=== PATIENT | female | born 1970 | race African-American/Black ===

== ENCOUNTER 2025-02-02 12:10 | Outpatient (AMB) | payer OTHER, SELFPAY ==
--- NOTE | 2025-02-02 12:28 | MHC.AMNUTRGE ---
VS Expanded 02/02/25 12:33 02/02/25 12:45 Height 4 ft 11 in 4 ft 11 in Weight 255 lb 8.252 oz 255 lb BMI 51.6 51.5 Intake Visit Reasons: Nutrition referral Medication List - Last Reconciled 02/03/[address], LDN ferrous sulfate 325 mg PO DAILY insulin glargine (Lantus Solostar U-100 Insulin) 30 units subcut QAM insulin lispro (Admelog SoloStar U-100 Insulin lispro) 1 sliding scale dose subcut USEASDIRECTD metformin ER 500 mg PO DAILY Nutrition Presentation Details: Pt presents for MNT for T2DM Pt reports monitoring blood sugar before meals and bg ranging from 80-140 Pt reports working on modifying total carb per meals but does not know what to eat. Pt is concerned of elevated blood sugar. Brunch : sausage/eggs 5: salmon /salad 8pm rice chicken/shrimp snacks: popcorn Beverage: water, light juices, tea no sugar added SWG-Fnrobhp-Aj.Jeor Equation Height: 4 ft 11 in Weight: 255 lb Resting Metabolic Rate: 1670.37 Calculated Activity Level: Sedentary Calories Needed to Maintain Weight: 2004.44 Diagnosis Nutrition problem #1: food nutri know defi As related to (etiology) #1: diagnosis As evidenced by (sign/symptom) #1: knowledge deficit of diet Assessment & Plan Assessment & Plan (1) T2DM (type 2 diabetes mellitus): Code(s): E11.9 - Type 2 diabetes mellitus without complications Category: Medical Plan: current wt: 116 kg ( 02/19 ) est kcal needs as per MSJ: 2000 est protein needs as per 1 g/kg BW: 120 est fluid needs as per 30 ml/kg BW: 3500 Recommended fiber > 12 g /day and gradually increase up to 25-28 g /day or as tolerated Nutrition topics discussed : Reviewed (R), Pt verbalized understanding (V) , not applicable (N/A) R, : Healthy Plate Method Concept: R, : Carbohydrates: food sources of carbohydrates, relationship of carbohydrates to blood glucose, fatty liver GI health. Recommended total amount of carbohydrates per meals and snack. Differences between simple carbohydrates and complex carbohydrates R, V, N/A: Lean protein foods including vegan , vegetarian sources of protein. Benefits of protein (including but not limited to healing, nutritional value , benefits in weight loss, glucose control R, V, N/A: Fats : Source of fats, benefits of fats. Difference between saturated and unsaturated fats. Saturated fats and its contribution to inflammation R, V, N/A: Fiber: food sources and role of fiber in the diet (including but not limited to its role as a prebiotic, benefits in constipation, role in IBS , role in glucose control and cholesterol level) R, V, N/A: Hydration: role of hydration and prevention of dehydration or over hydration. Foods and water content. R, V, N/A: Vitamins and Minerals in foods and supplements R, : Interpreting food labels, including serving size, macronutrients, vitamins, minerals, allergens, ingredient list , % daily value Patient Instructions: Have a meal replacement once a day Follow healthy plate metho at dinner reducing total carb to less than 60 g = see meal ideas Coding Level of Care Code Nutr Indiv Intake (10120) Diagnoses T2DM (type 2 diabetes mellitus) E11.9 Time Spent (min) 30
[2025-02-02 12:33] VITALS: BMI 51.6
[2025-02-03 21:02] VITALS: BMI 51.5
== END 2025-02-02 13:19 | disposition home or self-care (01) ==
LOC: HO.ENCR 12:11
PROVIDERS: PCP Internal Medicine; Visit Provider Dietitian, Registered
DX: E11.9 Type 2 diabetes mellitus without complications (principal)

== ENCOUNTER → 2025-02-02 12:10 | Outpatient (BNVA) | payer OTHER, SELFPAY | PROVIDERS: PCP Internal Medicine; Visit Provider Dietitian, Registered | DX: E11.9 Type 2 diabetes mellitus without complications (principal) | CPT/HCPCS: 97802 ==

== ENCOUNTER 2025-04-12 12:48 | Outpatient (AMB) | payer OTHER, SELFPAY ==
--- OUTSIDE RECORDS SUMMARY | 2025-04-08 14:30 | XMS_ITS | Encounter Summary ---
Author Organization [facility] Address [address] [place] [address] Care Team Providers Care Janitor Caretaker Name Role Phone Gemini Law MD Primary Care Provider [phone] Encounter Details Date Type Department Care Team (Latest Contact Info) Description 04/08/2025 2:30 PM EST - 04/08/2025 11:59 PM [facility] Encounter [facility] - [facility] [address] [place] [address] Right knee pain, unspecified chronicity Discharge Disposition: Home or Self Care Social History Tobacco Use Types Packs/Day Years Used Date Smoking Tobacco: Never Smokeless Tobacco: Never Alcohol Use Standard Drinks/Week Comments No 0 (1 standard drink = 0.6 oz pur e alcohol) Housing Instability Answer Date Recorde d Are you worried that in the next 2 months you may not have stable housing? No 01/07/2025 Food Access & Nutrition Answer Date Rec orded Do you have access to a vari ety of food including fruits and vegetables? No 01/07/2025 Access to Healthcare Answer Date Record ed Within the last 3 months, ho w many times did you visit the emergency department for your medical care? 0 01/07/2025 Health Literacy Answer Date Recorded How often do you need to hav e someone help you when you read instructions, pamphlets, or other written material from your doctor or pharmacy? Often 01/07/2025 Caregiver: How often do you need to have someone help you when you read instructions, pamphlets, or other written material from your doctor or pharmacy? Not on file 01/07/2025 Financial Risk Answer Date Recorded How hard is it for you to pa y for the very basics like food, housing, medical care, and air conditioning / heating? Very hard 01/07/2025 Transportation Answer Date Recorded Has the lack of transportati on kept you from meetings, work, or from getting things needed for daily living? Yes Has the lack of transportati on kept you from medical appointments or from getting medications? Yes 01/07/2025 Social Isolation Answer Date Recorded How often do you feel lonely or isolated from th ose around you? Never 01/07/2025 Food Risk Answer Date Recorded Within the past 12 months we worried whether our food would run out before we got money to buy more. Often true 01/07/2025 Within the past 12 months th e food we bought just didn't last and we didn't have money to get more. Often true 01/07/2025 Dependent Care Answer Date Recorded Do you need help finding or paying for care for your loved ones. For example, children's choir director or elderly care for an older adult? No 01/07/2025 Education Answer Date Recorded Do you think completing more education or training, like finishing a GED, going to college, or learning a trade, would be helpful for you? Yes 01/07/2025 Employment and Income Answer Date Recor ded During the last four weeks, have you been actively looking for work? No 01/07/2025 Living Situation Answer Date Recorded What is your living situation? Unrecognized valu e 01/07/2025 Comments No Sex and Gender Information Value Date Recorded Sex Assigned at Not on file Legal Sex Female 3:42 AM EST Gender Identity Not on file Sexual Orientation Not on file documented as of this encounter Medications at Time of Discharge albuterol HFA (PROAIR HFA ; PROVENTIL HFA ; VENTOLIN HFA) 90 mcg/actuation inhaler Inhale 2 puffs by mouth if needed. 02/20/2023 apixaban (Eliquis) 5 mg tablet Take 1 tablet (5 mg total) by mouth 2 (two) times a day. 180 each 01/11/2025 bisacodyL (DULCOLAX) 5 mg EC tablet Take 2 tablets by mouth right before beginning bowel prep. See instructions provided by the office 2 tablet 2025 blood-glucose sensor (FreeStyle Mary 3 Plus Sensor)Indication s:Type 2 diabetes mellitus with hyperglycemia, with long-term current use of insulin (CMS/HCC V24, CMS/HCC V28) Apply 1 sensor and change every 15 days. Use one sensor every 15 days E11.9 6 each 1 02/16/2025 diclofenac (VOLTAREN) 1 % topical gel Apply 1 g topically 3 (three) times a day. 120 g 2 04/08/2025 ferrous sulfate 325 mg (65 mg iron) EC tabletIndications :Iron deficiency anemia, unspecified iron deficiency anemia type Take 1 tablet (325 mg total) by mouth 1 (one) time each day with breakfast. 90 tablet 1 04/06/2025 gabapentin (NEURONTIN) 300 mg capsule Take 1 capsule in the morning, 1 capsule in the afternoon and 2 capsules at night 120 each 2 02/15/2025 glucose blood test strip Use as instructed 100 each 12 01/27/2025 insulin glargine (Lantus Solostar U-100 Insulin) 100 unit/mL (3 mL) injection pen Inject 30 Units under the skin 1 (one) time each day in the morning. 15 mL 1 02/16/2025 insulin lispro (HumaLOG KwikPen) 100 unit/mL injection pen 10-15 units three times a day before meals per sliding scale. Call if <70. 100-149 14 units; 150-199 16 units; 200-249 18 units; 250-299 20 units; 300-349 22 units; 350-399 24 units call if >400 15 mL 1 02/15/2025 iron,carbonyl-vit cruz C (Vitron-C) 65 mg iron- 125 mg tablet,delayed release (DR/EC) Take 1 tablet by mouth every other day. 45 tablet 03/03/2025 6 LORazepam (ATIVAN) 0.5 mg tablet Take 1 tablet (0.5 mg total) by mouth 2 (two) times a day if needed for anxiety. Max Daily Amount: 1 mg 01/05/2025 losartan (Cozaar) 25 mg tablet Take 1 tablet (25 mg total) by mouth 1 (one) time each day. 30 each 11 02/04/2025 6 metFORMIN XR (GLUCOPHAGE-XR) 500 mg 24 hr tablet Take 1 tablet twice daily with food 180 each 2 03/10/2025 metoprolol tartrate (LOPRESSOR) 25 mg tablet Take 0.5 tablets (12.5 mg total) by mouth 2 (two) times a day. 90 tablet 1 01/27/2025 polyethylene glycol (Golytely) 236-22.74-6.74 -5.86 gram solution Take 4L by mouth once for one dose. May substitue any PEG. Starting at 2PM the day before your procedure drink 1 8oz glasses at your own pace until you complete half of the gallon. Finish 2nd half of the gallon at 8PM. 4000 mL 2025 rosuvastatin (CRESTOR) 10 mg tablet Take 1 tablet (10 mg total) by mouth 1 (one) time each day. 90 tablet 1 03/03/2025 documented as of this encounter Discharge Disposition Disposition Code Departure Means Destination Home or Self Care documented in this encounter Plan of Treatment Upcoming Encounters Date Type Department Care Team (Late st Contact Info) Description 04/15/2025 12:30 PM EST Ancillary Procedure [facility] [address] [facility] [address] [place] [address] 04/29/2025 11:30 AM EST Office Visit [facility] Hematology Oncology [address] [place] [phone] Elizabeth Chan, [address] [place] [address] 05/10/2025 9:00 AM EST Appointment [facility] Endoscopy [address] [place] [address] Obi Angelo MD [address] [facility] [address] [place] [address] 05/12/2025 8:30 AM EST Office Visit Endocrinology - [facility] [address] [place] [address] Paulina Jones PA [address] [place] [address] 05/13/2025 4:00 PM EST Office Visit Orthopedics - [facility] [address] [place] [address] Alok Mccauley PA [address] [place] [address] 06/09/2025 9:00 AM EST Office Visit Internal Medicine - [facility] [address] [place] [address] Angie Donahue NP [address] [place] [address] 07/08/2025 3:00 PM EDT Ancillary Procedure Pulmonology [facility] [address] [phone] 07/08/2025 3:45 PM EDT Office Visit Pulmonology [address] [phone] Renu Barclay MD [address] [place] [phone] documented as of this encounter Procedures Procedure Name Priority Date/Time Associated Diagnosis Comments XR KNEE 4+ VIEWS RIGHT Routine 04/08/2025 2:59 PM EST Right knee pain, unspecified chronicity documented in this encounter Results * XR Knee 4+ Views Right (04/08/2025 2:59 PM EST) Anatomical Region Laterality Modality Lower Extremities, Knee Right [facility] 04/10/2025 9:34 AM EST Impressions 04/10/2025 9:38 AM EST Progressive degenerative changes. -------- FINAL REPORT -------- Dictated By: Odilia Valentin Dictated Date: 04/10/2025 09:34 ET Assigned Physician: Odilia Valentin Reviewed and Electronically Signed By: Odilia Valentin Signed Date: 04/10/2025 09:38 ET Workstation ID: [id number] Transcribed By: Self Edit Transcribed Date: 04/10/2025 09:34 ET Narrative 04/10/2025 9:38 AM EST EXAM: Right knee x-ray HISTORY: Right knee pain. COMPARISON: 10/22/2019 VIEWS: 4 views performed, AP and tunnel views performed weightbearing. FINDINGS: Progressive joint space narrowing at the patellofemoral joint. Mild joint space narrowing in the medial compartment. Progressive tricompartment spurring. No acute fracture or malalignment detected. No destructive bone lesion. No joint effusion. Procedure Note Odilia Valentin MD - 04/10/2025 EXAM: Right knee x-ray HISTORY: Right knee pain. COMPARISON: 10/22/2019 VIEWS: 4 views performed, AP and tunnel views performed weightbearing. FINDINGS: Progressive joint space narrowing at the patellofemoral joint. Mild jointspace narrowing in the medial compartment. Progressive tricompartmentspurring. No acute fracture or malalignment detected. No destructive bonelesion. No joint effusion. IMPRESSION: Progressive degenerative changes. -------- FINAL REPORT -------- Dictated By: Odilia Valentin Dictated Date: 04/10/2025 09:34 ET Assigned Physician: Odilia Valentin Reviewed and Electronically Signed By: Odilia Valentin Signed Date: 04/10/2025 09:38 ET Workstation ID: [id number] Transcribed By: Self Edit Transcribed Date: 04/10/2025 09:34 ET [facility] IMG XR PROCEDURES Final Result documented in this encounter Visit Diagnoses Diagnosis Right knee pain, unspecified chronicity documented in this encounter Additional Health Concerns Assessment Noted Time PHQ-9 Depression Total Score: 13 03/03/ 025 2:01 PM EST documented as of this encounter Care Teams Janitor Caretaker Relationship Specialty Start Date End Date Gemini Law MD [address] [place] [phone] PCP - General Internal Medicine 01/21/25 documented as of this encounter
--- OUTSIDE RECORDS SUMMARY | 2025-04-08 15:30 | XMS_ITS | Encounter Summary ---
Author Organization [facility] Address [address] [place] [address] Care Team Providers Care Shoeshiner Name Role Phone Gemini Law MD Primary Care Provider [phone] Reason for Visit * Reason Comments Pain Consult * Consultation (Routine) - Authorized Specialty Diagnoses / Procedures Referred By Contact Referred To Contact Orthopaedics / Orthopaedic Surgery Diagnoses Chronic pain of right knee Elizabeth Romano NP [address] [place] [address] Phone: tel: fax: Alok Mccauley PA [address] [place] [phone] Phone: tel: fax: Referral ID Status Reason Start Date Expiration Date Visits Requested Visits Authorized [id number] Authorized Specialty Services Required 02/04/2026 1 1 Encounter Details Date Type Department Care Team (Late st Contact Info) Description 04/08/2025 3:30 PM EST Consult Orthopedics - [place] [address] [place] [phone] Alok Mccauley PA [address] [place] [phone] Primary osteoarthritis of right knee (Primary Dx) Social History Tobacco Use Types Packs/Day Years Used Date Smoking Tobacco: Never Smokeless Tobacco: Never Tobacco Cessation:Counseling Given: Not Answered Alcohol Use Standard Drinks/Week Comments No 0 [...] for your loved ones. For example, children's institution attendant or elderly care for an older adult? [...] on file documented as of this encounter Last Filed Vital Signs Vital Sign Reading Time Taken Comments Blood Pressure - - Pulse - - Temperature - - Respiratory Rate 16 04/08/2025 3:09 PM EST Oxygen Saturation - - Inhaled Oxygen Concentration - - Weight 115 kg (253 lb) 04/08/2025 3:09 PM EST Height 149.9 cm (4' 11 ) 04/08/2025 3:09 PM EST Body Mass Index 51.1 04/08/2025 3:09 PM EST documented in this encounter Ordered Prescriptions Prescription Sig Dispense Quantity Refills Last Filled Start Date End Date diclofenac (VOLTAREN) 1 % topical gel Apply 1 g topically 3 (three) times a day. 120 g 2 04/08/2025 documented in this encounter Progress Notes * PAN Espinoza - 04/08/2025 3:30 PM EST CHIEF COMPLAINT: Pain and Consult of the Right Knee had concerns including Pain and Consult of the Right Knee. IDENTIFIER: Cami Vitale is a 55 y.o. old female. HPI: Cami Vitale is here for evaluation of right knee pain. Patient is having worsening right knee pain over the last 2 years. This has become more severe with climbing and going down stairs as well as making her feel like the knee is unstable. ROS: GENERAL: No malaise, significant weight loss or fever HEENT: No changes in hearing or vision, nose bleeds or other nasal problems NECK: No lumps, goiter, pain or significant neck swelling RESPIRATORY: No cough, wheezing or shortness of breath CARDIOVASCULAR: No chest pain, leg swelling or palpitations GI: No abdominal discomfort, blood in stools or black stools : No dysuria, frequency or incontinence MUSCULOSKELETAL: See HPI. SKIN: No lesions, rash or itching NEURO: No persistent headache, syncope, seizures, weakness or numbness Remainder of systems noncontributory. PHYSICAL EXAM: Vitals: 04/08/25 1509 Resp: 16 Weight: 115 kg (253 lb) Height: 1.499 m (59 ) Examination of the right knee demonstrates some tenderness of the medial joint line. Otherwise the knee is stable to ligamentous stress and no effusion or swelling Full range of motion LABS/IMAGING: Xrays reviewed: X-rays performed of the right knee demonstrate mild arthritic changes small marginal osteophytes. Reading pending IMPRESSION: 1. Primary osteoarthritis of right knee Cami was seen today for pain and consult. Diagnoses and all orders for this visit: 1. Primary osteoarthritis of right knee Other orders - Ambulatory referral to Orthopedic - diclofenac sodium; Apply 1 g topically 3 (three) times a day. PLAN: 1. Primary osteoarthritis of right knee (Primary) Patient with mild arthritis of the right knee that is symptomatic however. We talked about option she cannot take oral NSAIDs. We can have her trial diclofenac gel we did discuss cortisone injectionsbut she would like to wait on those and see how she does with a topical No orders of the defined types were placed in this encounter. The details of the visit were reviewed with the patient. Pertinent history, and objective findings were reviewed, along with the diagnoses: Cami Prophet acknowledges understanding of the above plan and agrees to follow recommendations and/or take medications as prescribed. Follow up in about 4 weeks (around 05/06/2025). PAST MEDICAL HISTORY: Patient Active Problem List Diagnosis Date Noted Primary hypertension 02/04/2025 History of pulmonary embolism 02/04/2025 Iron deficiency anemia 01/25/2025 Excessive bleeding in premenopausal period 01/25/2025 PFO (patent foramen ovale) 01/21/2025 Type 2 diabetes mellitus with microalbuminuria ([facility] V24, [facility] V28) 01/02/2025 Type 2 diabetes mellitus with hyperglycemia, with long-term current use of insulin ([facility] V24, [facility] V28) 12/24/2024 Enlargement of lymph node 01/10/2021 Glaucoma suspect, bilateral 06/04/2017 Vitamin D deficiency 12/27/2009 Morbid obesity ([facility] V24, [facility] V28) 11/07/2009 Surgical History[1] SOCIAL HISTORY: Social History Tobacco Use Smoking status: Never Smokeless tobacco: Never Substance Use Topics Alcohol use: No FAMILY HISTORY: Family History[2] MEDICATIONS DISCONTINUED/REORDERED: There are no discontinued medications. ACTIVE MEDICATIONS: Medications Taking[3] ALLERGIES: Allergies[4] PAN Espinoza [1] Past Surgical History: Procedure Laterality Date OTHER SURGICAL HISTORY PROCEDURE: DENIES PREVIOUS SURGERY [2] Family History Problem Relation Name Age of Onset No Known Problems Mother No Known Problems Father No Known Problems Sister No Known Problems Sister No Known Problems Brother No Known Problems Maternal Grandmother Heart attack Maternal Grandfather older than 50 No Known Problems Paternal Grandmother No Known Problems Paternal Grandfather No Known Problems Aunt No Known Problems Uncle Lupus Nephew Anu Mclaughlin Breast cancer Neg Hx Blindness Neg Hx cataract, glaucoma, macular degeneration, strabismus Thyroid disease Neg Hx [3] Outpatient Medications Marked as Taking for the 04/08/25 encounter (Consult) with PAN Espinoza Medication Sig Dispense Refill albuterol HFA (PROAIR HFA ; PROVENTIL HFA ; VENTOLIN HFA) 90 mcg/actuation inhaler Inhale 2 puffs by mouth if needed. apixaban (Eliquis) 5 mg tablet Take 1 tablet (5 mg total) by mouth 2 (two) times a day. 180 each 0 bisacodyL (DULCOLAX) 5 mg EC tablet Take 2 tablets by mouth right before beginning bowel prep. See instructions provided by the office 2 tablet 0 blood-glucose sensor (FreeStyle Mary 3 Plus Sensor) Apply 1 sensor and change every 15 days. Use one sensor every 15 days E11.9 6 each 1 ferrous sulfate 325 mg (65 mg iron) EC tablet Take 1 tablet (325 mg total) by mouth 1 (one) time each day with breakfast. 90 tablet 1 gabapentin (NEURONTIN) 300 mg capsule Take 1 capsule in the morning, 1 capsule in the afternoon and2 capsules at night 120 each 2 glucose blood test strip Use as instructed 100 each 12 insulin glargine (Lantus Solostar U-100 Insulin) 100 unit/mL (3 mL) injection pen Inject 30 Units under the skin 1 (one) time each day in the morning. 15 mL 1 insulin lispro (HumaLOG KwikPen) 100 unit/mL injection pen 10-15 units three times a day before meals per sliding scale. Call if <70. 100-149 14 units; 150- 199 16 units; 200-249 18 units; 250-299 20 units; 300-349 22 units; 350-399 24 units call if >400 15 mL 1 iron,carbonyl-vitamin C (Vitron-C) 65 mg iron- 125 mg tablet,delayed release (DR/EC) Take 1 tablet by mouth every other day. 45 tablet 0 LORazepam (ATIVAN) 0.5 mg tablet Take 1 tablet (0.5 mg total) by mouth 2 (two) times a day if needed for anxiety. Max Daily Amount: 1 mg losartan (Cozaar) 25 mg tablet Take 1 tablet (25 mg total) by mouth 1 (one) time each day. 30 each 11 metFORMIN XR (GLUCOPHAGE-XR) 500 mg 24 hr tablet Take 1 tablet twice daily with food 180 each 2 metoprolol tartrate (LOPRESSOR) 25 mg tablet Take 0.5 tablets (12.5 mg total) by mouth 2 (two) times a day. 90 tablet 1 polyethylene glycol (Golytely) 236-22.74-6.74 -5.86 gram solution Take 4L by mouth once for one dose. May substitue any PEG. Starting at 2PM the day before your procedure drink 1 8oz glasses at your own pace until you complete half of the gallon. Finish 2nd half of the gallon at 8PM. 4000 mL 0 rosuvastatin (CRESTOR) 10 mg tablet Take 1 tablet (10 mg total) by mouth 1 (one) time each day. 90 tablet 1 Current Facility-Administered Medications for the 04/08/25 encounter (Consult) with PAN Espinoza Medication Dose Route Frequency Provider Last Rate Last Admin alcohol swabs pads, medicated Topical Once Gemini Law MD [4] No Known Allergies documented in this encounter Plan of Treatment Upcoming Encounters Date Type Department Care Team (Late st Contact Info) Description 04/15/2025 12:30 PM EST Ancillary Procedure [facility] - [address] [place] [address] 04/29/2025 11:30 AM EST Office Visit [facility] Hematology Oncology [address] [place] [phone] Elizabeth Chan DO [address] [place] [address] 05/10/2025 9:00 AM EST Appointment [facility] Endoscopy [address] [place] [phone] Obi Angelo MD 299 [facility] [address] [place] [address] 05/12/2025 8:30 AM EST Office Visit Endocrinology - [address] [phone] Paulina Jones PA [address] [place] [address] 05/13/2025 4:00 PM EST Office Visit Orthopedics - [address] [phone] Aolk Mccauley PA [address] [place] [phone] 06/09/2025 9:00 AM EST Office Visit Internal Medicine - [facility] [address] [place] [address] Angie Donahue, FRED [address] [place] [address] 07/08/2025 3:00 PM EDT Ancillary Procedure Pulmonology [facility] 175 [facility] [address] [place] [phone] 07/08/2025 3:45 PM EDT Office Visit Pulmonology - [place] 175 [facility] [address] [place] [phone] Renu Barclay MD [address] [place] [phone] documented as of this encounter Visit Diagnoses Diagnosis Primary osteoarthritis of right knee- Primary documented in this encounter Orders Outpatient Referral Count Last Ordered Date Fir st Ordered Date AMB REFERRAL TO ORTHOPEDIC 1 04/08/2025 documented in this encounter Additional Health Concerns Assessment Noted Time PHQ-9 Depression Total Score: 13 025 2:01 PM EST documented as of this encounter Care Teams Shoeshiner Relationship Specialty Start Date End Date Gemini Law MD [address] [facility] [place] [address] PCP - General Internal Medicine 01/21/25 documented as of this encounter
--- NOTE | 2025-04-12 13:04 | MHC.AMNUTRGE ---
VS Expanded 04/12/25 13:10 04/13/25 13:56 Height 4 ft 11 in 4 ft 11 in Weight 251 lb 8 oz 251 lb BMI 50.8 50.7 Intake Visit Reasons: T2dm Nutrition Presentation Details: Pt presents for MNT f/u for T2DM Pt reports lacking meal planning and cooking skills but working on trying new foods. Pt reports working on reducing starches and high sugar foods. B: chex dry and a fruit or and yogurt L: ravioli and sausages , water or crystal light Dinner: rest (buffet) , choosing low sugar beverages Pt reports working on reducing sugars and starches. Pt did not bring glucometer to this appt. Pt reports having low blood glucose levels, below 70s after the meals, this has happened 2-3 times a week at no particular meal or time. Pt reports treating low BG by having juice or 3 glucose tablets, resulting in BG >90, 15 minutes after. Pt was advised to call PCP and notify dosages of insulin /meal and time when low blood sugar is happening for further assessment. DGE-Qklpbfw-Xb.Jeor Equation Height: 4 ft 11 in Weight: 251 lb Resting Metabolic Rate: 1647.32 Calculated Activity Level: Sedentary Calories Needed to Maintain Weight: 1976.78 Assessment & Plan Assessment & Plan (1) T2DM (type 2 diabetes mellitus): Code(s): E11.9 - Type 2 diabetes mellitus without complications Category: Medical Plan: current wt: 116 kg ( 02/19 ), 114 kg (04/21) est kcal needs as per MSJ: 2000 est protein needs as per 1 g/kg BW: 120 est fluid needs as per 30 ml/kg BW: 3400 Recommended fiber > 12 g /day and gradually increase up to 25-28 g /day or as tolerated Nutrition topics discussed : Reviewed (R), Pt verbalized understanding (V) , not applicable (N/A) R, : Healthy Plate Method Concept: R, : Carbohydrates: food sources of carbohydrates, relationship of carbohydrates to blood glucose, fatty liver GI health. Recommended total amount of carbohydrates per meals and snack. Differences between simple carbohydrates and complex carbohydrates R, : Lean protein foods including vegan , vegetarian sources of protein. Benefits of protein (including but not limited to healing, nutritional value , benefits in weight loss, glucose control R, V, N/A: Fats : Source of fats, benefits of fats. Difference between saturated and unsaturated fats. Saturated fats and its contribution to inflammation R, V, N/A: Fiber: food sources and role of fiber in the diet (including but not limited to its role as a prebiotic, benefits in constipation, role in IBS , role in glucose control and cholesterol level) R, : Hydration: role of hydration and prevention of dehydration or over hydration. Foods and water content. R, V, N/A: Vitamins and Minerals in foods and supplements R, : Interpreting food labels, including serving size, macronutrients, vitamins, minerals, allergens, ingredient list , % daily value Patient Instructions: read food labels choose less than 20 g of carbohydrates and at least 12 g of protein), limit snacks to no more than 3 a day Continue working on reducing on amounts of starches consumed (thinner crust for her pizza,caution when eating out, caution with sauces that have sugar added, a soups that have more starch added, breaded protein sources and in general amount of starches consumed. Work on following healthy plate method Keep a food record and bring to next follow-up Discuss low blood sugars including time, meal, and amount of insulin with your doctor for further assessment Coding Level of Care Code Nutr Indiv Subseq (88232) Diagnoses T2DM (type 2 diabetes mellitus) E11.9 Time Spent (min) 30
[2025-04-12 13:10] VITALS: BMI 50.8
--- OUTSIDE RECORDS SUMMARY | 2025-04-12 16:39 | XMS_ITS ---
Author Name [facility] Organization Unknown Care Team Organization Name Specialty Phone Email Start Date End Da te [facility] 03/05/2022 12/15/2023
--- OUTSIDE RECORDS SUMMARY | 2025-04-12 16:39 | XMS_ITS | Encounter Summary ---
Author Organization [facility] Address [address] [place] [address] Care Team Providers Care Psychiatrist Name Role Phone Gemini Law MD Primary Care Provider [phone] Reason for Visit * Reason Onset Date Comments Request For Order(s) 03/10/2025 Marcos grant [id number] Encounter Details Date Type Department Care Team ([facility] [address] Contact Info) Description 03/10/2025 Telephone Internal Medicine - [place] [address] [place], [place] [phone] Gemini Law MD [address] [place] [address] Social History Tobacco Use Types Packs/Day Years [...] care for your loved ones. For example, child care specialist or elderly care for an older adult? [...] on file documented as of this encounter Progress Notes * Keena Stewart - 03/10/2025 2:37 PM EST Placed order in Gemini Law MD Please sign and fax back to [phone] documented in this encounter Plan of Treatment Upcoming Encounters Date Type Department Care Team (Late st Contact Info) Description 04/15/2025 12:30 PM EST Ancillary Procedure [facility] [address] [place] [phone] 04/29/2025 11:30 AM EST Office Visit [facility] Hematology Oncology [address] [place] [phone] Elizabeth Chan, DO [address] [place] [address] 05/10/2025 9:00 AM EST Appointment [facility] Endoscopy [address] [place] [phone] Obi Angelo MD 299 [facility] [address] [place] [address] 05/12/2025 8:30 AM EST Office Visit Endocrinology - [place] [address] [place] [address] Paulina Jones PA [address] [place] [address] 05/13/2025 4:00 PM EST Office Visit Orthopedics - [address] [phone] Alok Mccauley, PAN [address] [place] [phone] 06/09/2025 9:00 AM EST Office Visit Internal Medicine - [facility] [address] [place] [address] Angie Donahue, FRED [address] [place] [address] 07/08/2025 3:00 PM EDT Ancillary Procedure Pulmonology - [place] 175 [facility] 200 [place] [phone] 07/08/2025 3:45 PM EDT Office Visit Pulmonology - [place] 175 [facility] [address] [place] [phone] Renu Barclay MD [address] [place] [phone] documented as of this encounter Visit Diagnoses Not on filedocumented in this encounter Additional Health Concerns Assessment Noted Time PHQ-9 Depression Total Score: 13 025 2:01 PM EST documented as of this encounter Care Teams Psychiatrist Relationship Specialty Start Date End Date Gemini Law MD [address] [place] [phone] PCP - General Internal Medicine 01/21/25 documented as of this encounter
--- OUTSIDE RECORDS SUMMARY | 2025-04-12 16:39 | XMS_ITS | Encounter Summary ---
Author Organization [facility] Address [address] [place] [address] Care Team Providers Care Corset Maker Name Role Phone Gemini Law MD Primary Care Provider [phone] Encounter Details Date Type Department Care Team (Late st Contact Info) Description 02/04/2025 [facility] [address] [place] [address] Elizabeth Romano NP [address] [place] [address] Social History Tobacco Use Types Packs/Day Years [...] for your loved ones. For example, child development specialist or elderly care for an older [...] on file documented as of this encounter Plan of Treatment Upcoming Encounters Date Type Department Care Team (Late st Contact Info) Description 04/15/2025 12:30 PM EST Ancillary Procedure [facility] - [address] [place] [address] 04/29/2025 11:30 AM EST Office Visit [facility] Hematology Oncology [address] [place] [phone] Elizabeth Chan, DO [address] [place] [address] 05/10/2025 9:00 AM EST Appointment [facility] Endoscopy [address] [place] [phone] Obi Angelo MD 299 [facility] [address] [place] [address] 05/12/2025 8:30 AM EST Office Visit Endocrinology - [address] [phone] Paulina Jones PA [address] [place] [address] 05/13/2025 4:00 PM EST Office Visit Orthopedics - [address] [phone] Alok Mccauley PA [address] [place] [phone] 06/09/2025 9:00 AM EST Office Visit Internal Medicine - [facility] [address] [place] [address] Angie Donahue, FRED [address] [place] [address] 07/08/2025 3:00 PM EDT Ancillary Procedure Pulmonology [facility] 175 [facility] [address] [place] [phone] 07/08/2025 3:45 PM EDT Office Visit Pulmonology [facility] 175 [facility] [address] [place] [phone] Renu Barclay MD [address] [place] [phone] documented as of this encounter Visit Diagnoses Not on filedocumented in this encounter Additional Health Concerns Assessment Noted Time PHQ-9 Depression Total Score: 17 025 9:43 AM EDT documented as of this encounter Care Teams Corset Maker Relationship Specialty Start Date End Date Gemini Law MD 305 [facility] [place] [phone] PCP - General Internal Medicine 01/21/25 documented as of this encounter
--- OUTSIDE RECORDS SUMMARY | 2025-04-12 16:39 | XMS_ITS | Encounter Summary ---
Author Organization [facility] Address [address] [place] [address] Care Team Providers Care Product Developer Name Role Phone Gemini Law MD Primary Care Provider [phone] Encounter Details Date Type Department Care Team (Late st Contact Info) Description 02/07/2025 Results Follow-Up Walk[facility] - [facility] [address] [place] [phone] Ricardo Howell, FRED [address] [place], [place] [phone] Social History Tobacco Use Types Packs/Day Years [...] for your loved ones. For example, child protection specialist or elderly care for an older [...] as of this encounter Progress Notes * Miladys Castorena - 02/07/2025 11:29 AM EDT Pt returned call for ultra sound results, please call back at [phone] documented in this encounter Plan of Treatment Upcoming Encounters Date Type Department Care Team (Late st Contact Info) Description 04/15/2025 12:30 PM EST Ancillary Procedure [facility] - [address] [place] [address] 04/29/2025 11:30 AM EST Office Visit [facility] Hematology Oncology [address] [place] [phone] Elizabeth Chan DO [address] [place] [address] 05/10/2025 9:[address] [facility] Endoscopy [address] [place] [phone] Obi Angelo MD [address] [address] 05/12/2025 8:30 AM EST Office Visit Endocrinology - [address] [phone] Paulina Jones PA [address] [place] [address] 05/13/2025 4:00 PM EST Office Visit Orthopedics - [place] [phone] Alok Mccauley PA [address] [place] [phone] 06/09/2025 9:00 AM EST Office Visit Internal Medicine - [address] [phone] Angie Donahue NP [address] [place] [address] 07/08/2025 3:00 PM EDT Ancillary Procedure Pulmonology - [place] [address] [phone] 07/08/2025 3:45 PM EDT Office Visit Pulmonology - [place] [address] [phone] Renu Barclay MD [address] [place] [phone] documented as of this encounter Visit Diagnoses Not on filedocumented in this encounter Additional Health Concerns Assessment Noted Time PHQ-9 Depression Total Score: 17 025 9:43 AM EDT documented as of this encounter Care Teams Product Developer Relationship Specialty Start Date End Date Gemini Law MD [facility] [phone] PCP - General Internal Medicine 01/21/25 documented as of this encounter
--- OUTSIDE RECORDS SUMMARY | 2025-04-12 16:39 | XMS_ITS | Clinical Summary ---
Author Organization [place] [address] [address] [facility] Building Address [address] [facility] [place] [address] Phone Care Team Providers Care Parcel Post Order Clerk Name Role Phone Gemini Law MD Primary Care Provider [phone] Allergies No known active allergies Medications albuterol HFA (PROAIR HFA ; PROVENTIL HFA ; VENTOLIN HFA) 90 mcg/actuation inhaler Inhale 2 puffs by mouth if needed. 02/21/20 23 Active LORazepam (ATIVAN) 0.5 mg tablet Take 1 tablet (0.5 mg total) by mouth 2 (two) times a day if needed for anxiety. Max Daily Amount: 1 mg 01/06/20 25 Active apixaban (Eliquis) 5 mg tablet Take 1 tablet (5 mg total) by mouth 2 (two) times a day. 180 each 01/12/20 25 Active metoprolol tartrate (LOPRESSOR) 25 mg tablet Take 0.5 tablets (12.5 mg total) by mouth 2 (two) times a day. 90 tablet 1 01/28/20 25 Active glucose blood test strip Use as instructed 100 each 12 01/28/20 25 026 Active losartan (Cozaar) 25 mg tablet Take 1 tablet (25 mg total) by mouth 1 (one) time each day. 30 each 11 02/05/20 25 026 Active insulin lispro (HumaLOG KwikPen) 100 unit/mL injection pen 10-15 units three times a day before meals per sliding scale. Call if <70. 100-149 14 units; 150-199 16 units; 200-249 18 units; 250-299 20 units; 300-349 22 units; 350-399 24 units call if >400 15 mL 1 02/16/20 25 Active gabapentin (NEURONTIN) 300 mg capsule Take 1 capsule in the morning, 1 capsule in the afternoon and 2 capsules at night 120 each 2 02/16/20 25 Active insulin glargine (Lantus Solostar U-100 Insulin) 100 unit/mL (3 mL) injection pen Inject 30 Units under the skin 1 (one) time each day in the morning. 15 mL 1 02/17/20 25 Active blood-glucose sensor (FreeStyle Mary 3 Plus Sensor)Indicati ons:Type 2 diabetes mellitus with hyperglycemia, with long-term current use of insulin (CMS/[facility] V24, CMS/HCC V28) Apply 1 sensor and change every 15 days. Use one sensor every 15 days E11.9 6 each 1 02/17/20 25 Active bisacodyL (DULCOLAX) 5 mg EC tablet Take 2 tablets by mouth right before beginning bowel prep. See instructions provided by the office 2 tablet 02/23/20 25 Active polyethylene glycol (Golytely) 236-22.74-6.74 -5.86 gram solution Take 4L by mouth once for one dose. May substitue any PEG. Starting at 2PM the day before your procedure drink 1 8oz glasses at your own pace until you complete half of the gallon. Finish 2nd half of the gallon at 8PM. 4000 mL 02/23/20 25 Active rosuvastatin (CRESTOR) 10 mg tablet Take 1 tablet (10 mg total) by mouth 1 (one) time each day. 90 tablet 1 03/03/20 25 026 Active iron,carbonyl-v itamin C (Vitron-C) 65 mg iron- 125 mg tablet,delayed release (DR/EC) Take 1 tablet by mouth every other day. 45 tablet 03/03/20 25 026 Active metFORMIN XR (GLUCOPHAGE-XR) 500 mg 24 hr tablet Take 1 tablet twice daily with food 180 each 2 03/10/20 25 Active ferrous sulfate 325 mg (65 mg iron) EC tabletIndicatio ns:Iron deficiency anemia, unspecified iron deficiency anemia type Take 1 tablet (325 mg total) by mouth 1 (one) time each day with breakfast. 90 tablet 1 04/06/20 25 Active diclofenac (VOLTAREN) 1 % topical gel Apply 1 g topically 3 (three) times a day. 120 g 2 04/08/20 25 Active ferrous sulfate 325 mg (65 mg iron) EC tabletIndicatio ns:Iron deficiency anemia, unspecified iron deficiency anemia type Take 1 tablet (325 mg total) by mouth 1 (one) time each day with breakfast. Do not crush, chew, or split. 90 tablet 01/03/20 25 025 Discontin u([facility]) [facility], Clinic, or Other Facility Administered Medication Ordered Dose Route Frequency Start Date End Date Status alcohol swabs pads, medicatedIndications:Type 2 diabetes mellitus with hyperglycemia, without long-term current use of insulin ([facility] V24, [facility] V28) TP Once 01/27/2025 Active Active Problems Problem Noted Date Diagnosed Date Primary hypertension 02/04/2025 History of pulmonary embolism 02/04/2025 Iron deficiency anemia 01/25/2025 Excessive bleeding in premenopausal period 01/25 PFO (patent foramen ovale) 01/21/2025 Type 2 diabetes mellitus with microalbuminuria 0 01/02/2025 Type 2 diabetes mellitus wit h hyperglycemia, with long-term current use of insulin 12/24/2024 Assessment & Plan (12/24/2024 8:37 AM EDT): 1 has started on metformin 500 mg, 2 tablet twice a day. I have diabetic panel ordered. I have referred her to endocrinology. Orders: Hemoglobin A1c; Future Microalbumin, protein and creatinine with ratio, urine, random; Future Lipid panel; Future Comprehensive metabolic panel; Future Ambulatory referral to Endocrinology; Future Enlargement of lymph node 01/10/2021 Overview (12/23/2024): R axilla, ref onc for ? biopsu Glaucoma suspect, bilateral 06/04/2017 Vitamin D deficiency 12/27/2009 Morbid obesity 11/07/2009 Resolved Problems Problem Noted Date Diagnosed Date Resolved Date Diabetes mellitus type 2, uncomplicated 01/05/2015 12/24/2024 Encounters Date Type Department Care Team Description 04/08/2025 3:30 PM EST Consult Orthopedics - [place] [address] [place] [address] Alok Mccauley PA Primary osteoarthritis of right knee (Primary Dx) 04/08/2025 2:30 PM EST - 04/08/2025 11:59 PM EST Hospital Encounter [facility] [address] [place], [place] [phone] Right knee pain, unspecified chronicity Discharge Disposition: Home or Self Care 04/06/2025 Billing Patient Not Present Internal Medicine - [place] [address] [place], [place] [phone] Gemini Law MD Type 2 diabetes mellitus without complications, unspecified whether intermediate insulin use ([facility] V24, [facility] V28) (Primary Dx) 04/01/2025 4:00 PM EST Consult Pulmonology - [place] [address] [facility] [address] [place] [address] Renu Barclay MD Pulmonary embolism, other, unspecified chronicity, unspecified whether acute cor pulmonale present ([facility] V24, [facility] V28) (Primary Dx); ASHLEY (dyspnea on exertion); Apnea; Echoencephalogram abnormality; Class 3 severe obesity due to excess calories with serious comorbidity and body mass index (BMI) of 50.0 to 59.9 in adult ([facility] V24, [facility] V28) 04/01/2025 1:35 PM EST Lab Draw Station - [facility] [address] [facility] [address] [place] [address] Bilateral pulmonary embolism ([facility] V24, [facility] V28) 04/01/2025 1:00 PM EST Office Visit [facility] Hematology Oncology [address] [place] [phone] Elizabeth Chan DO Bilateral pulmonary embolism ([facility] V24, [facility] V28) (Primary Dx) 03/31/2025 Telephone Internal Medicine - [place] [address] [place], [place] [phone] Gemini Law MD 03/11/2025 Telephone Internal Medicine - [place] [address] [facility] [place], [place] [phone] Gemini Law MD 03/10/2025 8:45 AM EST Office Visit Endocrinology [address] [phone] Paulina Jones PA Type 2 diabetes mellitus with hyperglycemia, with long-term current use of insulin ([facility] V24, [facility] V28) (Primary Dx) 03/10/2025 Telephone Internal Medicine - [address] [phone] Gemini Law MD 03/09/2025 Telephone Internal Medicine - [address] [phone] Gemini Law MD 03/03/2025 2:00 PM EST Office Visit Internal Medicine - [address] [phone] Gemini Law MD Type 2 diabetes mellitus with hyperglycemia, with long-term current use of insulin ([facility] V24, [facility] V28) (Primary Dx); Proteinuria, unspecified type; History of pulmonary embolism; Morbid obesity ([facility] V24, [facility] V28); Iron deficiency anemia, unspecified iron deficiency anemia type; Primary hypertension; Hyperlipidemia associated with type 2 diabetes mellitus ([facility] V24, [facility] V28); Current use of intermediate anticoagulation; Snoring; Screening for deficiency anemia 02/24/2025 Telephone Gastroenterology - [place] [facility] 175 [facility] [address] [place] [phone] Summer Page MD 02/24/2025 Telephone Endocrinology - [address] [phone] Marina Gale PA 02/23/2025 Telephone Gastroenterology - [address] [facility] [address] [place] [phone] Nadine Wang MA 02/15/2025 Telephone [facility] [place] [phone] Gemini Law MD 02/10/2025 Telephone Internal Medicine - [address] [place] [phone] Gemini Law MD 02/09/2025 9:00 AM EDT Consult Endocrinology [address] [phone] Paulina Jones PA Type 2 diabetes mellitus with hyperglycemia, with long-term current use of insulin (CMS/HCC V24, CMS/HCC V28) (Primary Dx); Primary hypertension 02/09/2025 Telephone [facility] [address] [place], [place] [address] [place] [phone] Gemini Law MD 02/08/2025 Telephone [facility] [place] [phone] Gemini Law MD 02/08/2025 Telephone [facility] [place] [phone] Gemini Law MD 02/07/2025 9:30 AM EDT - 02/07/2025 11:59 PM EDT Hospital [facility] [address] [place], [place] [address] [place] [phone] Abdominal mass, right lower quadrant Discharge Disposition: Home or Self Care 02/07/2025 Telephone [facility] [address] [place], [place] [address] [place] [phone] Ricardo Howell NP 02/07/2025 Telephone [facility] [address] [place], [place] [address] [place] [phone] Ricardo Howell NP 02/07/2025 Results Follow-Up [facility] [address] [place], [place] [address] [place] [phone] Ricardo Howell NP 02/04/2025 11:15 AM EDT Office [facility] [phone] Elizabeth Romano NP Type 2 diabetes mellitus with hyperglycemia, with long-term current use of insulin ([facility] V24, [facility] V28) (Primary Dx); Iron deficiency anemia, unspecified iron deficiency anemia type; Vitamin D deficiency; History of pulmonary embolism; Immunization due; Chronic pain of right knee; Primary hypertension 02/04/2025 Results Follow-Up [facility] [phone] Elizabeth Romano NP 02/04/2025 Telephone Internal Medicine - [address] [phone] Ivana Sharma MA 02/04/2025 Telephone Internal Medicine - [address] [phone] Gemini Law MD 01/28/2025 1:18 PM EDT - 01/28/2025 11:59 PM EDT Hospital Encounter [facility] [address] [place] [phone] Encounter for screening mammogram for malignant neoplasm of breast Discharge Disposition: Home or Self Care 01/25/2025 8:20 AM EDT Consult Gastroenterology - [place] 175 [facility] 175 [facility] [address] [place] [phone] Obi Angelo MD Iron deficiency anemia due to chronic blood loss (Primary Dx); Excessive bleeding in premenopausal period 01/24/2025 9:50 AM EDT Office Visit [facility] - [facility] [address] [facility] [address] [place] [phone] Padmini Boss MD PFO (patent foramen ovale) (Primary Dx); Pure hypercholesterolemia 01/21/2025 Telephone Internal Medicine - [address] [phone] Gemini Law MD 01/21/2025 Telephone [facility] [address] [place] [address] Gemini Law MD 01/20/2025 Billing Patient Not Present [facility] [phone] Angie Donahue, FRED Type 2 diabetes mellitus without complication, unspecified whether intermediate insulin use (CMS/[facility] V24, CMS/[facility] V28) (Primary Dx) 01/19/2025 4:00 PM EDT Office Visit Walk-In Clinic - [address] [phone] Ricardo Howell NP Abdominal mass, right lower quadrant (Primary Dx) 01/19/2025 Telephone [facility] [phone] Gemini Law MD 01/17/2025 Telephone [facility] [phone] Gemini Law MD 01/14/2025 Telephone [facility] [phone] Gemini Law MD 01/13/2025 Telephone Internal Medicine - [address] [phone] Gemini Law MD 01/12/2025 Telephone [facility] - [address] [place] [phone] Gemini Law MD 01/12/2025 Telephone [facility] [phone] Gemini Law MD 01/11/2025 2:00 PM EDT Office Visit Internal Medicine - [address] [phone] Elizabeth Romano, FRED Hospital discharge follow-up (Primary Dx); ASD (atrial septal defect); PFO (patent foramen ovale); Acute pulmonary embolism, unspecified pulmonary embolism type, unspecified whether acute cor pulmonale present ([facility] V24, [facility] V28); Right ventricular dysfunction; Type 2 diabetes mellitus with hyperglycemia, without long-term current use of insulin (CMS/[facility] V24, [facility] V28); Iron deficiency anemia, unspecified iron deficiency anemia type; Class 3 severe obesity with serious comorbidity and body mass index (BMI) of 50.0 to 59.9 in adult, unspecified obesity type ([facility] V24, [facility] V28) 01/11/2025 Telephone Internal Medicine - [place] [address] [place] [phone] Gemini Law MD from Last 3 Months Immunizations Immunization Administration Dates Next Due Hepatitis B (Szrchuc-F-Mauas , Recombivax HB-Adult) 19yo and older 11/06/2011,10/07/2011 Influenza Quadravalent, MDCK , 0.5ml, preservative free (Flucelvax) 6mo and older 03/08/2021 Influenza trivalent, MDCK, 0 .5mL, preservative free (Flucelvax) 6mo and older 02/04/2025 Influenza trivalent, with pr eservative (Fluzone; Afluria) 6mo and older 04/18/2016,04/01/2014,01/15/2008 Measles 10/01/2011 Mumps 10/01/2011 PPD Test 10/07/2011 Pneumococcal conjugate 20 va lent (Prevnar 20, PCV 20) 2mo and older 02/20/2023 Rubella 10/01/2011 Tdap Tetanus diptheria acell ular pertussis (Boostrix; Adacel) 7yo and older 05/07/2018,01/15/2008 Varicella live (Varivax) 12mo and older 10/01/19 12 Surgical History Surgery Date Site/Laterality Comments OTHER SURGICAL HISTORY PROCEDURE: DENIES PREVIOUS SURGERY Medical History Medical History Date Comments Diabetes mellitus type 2, co ntrolled, with complications ([facility] V24, [facility] V28) DX:Diabetes mellitus type 2, controlled, with complications (HCC) Glaucoma suspect, bilateral DX:G laucoma suspect, bilateral Enlargement of lymph node 01/10/2021 DX:Enl argement of lymph node; COMMENT: R axilla, ref onc for ? biopsu Type 2 diabetes mellitus wit h hyperglycemia, without long-term current use of insulin ([facility] V24, [facility] V28) 12/24/2024 Type 2 diabetes mellitus wit h microalbuminuria ([facility] V24, [facility] V28) 01/02/2025 Primary hypertension 02/04/2025 Family History Medical History Relation Name Comments No Known Problems Aunt No Known Problems Brother No Known Problems Father Heart attack Maternal Grandfather older t anderson 50 No Known Problems Maternal Grandmother No Known Problems Mother Lupus Nephew Anu Mclaughlin No Known Problems Paternal Grandfather No Known Problems Paternal Grandmother No Known Problems Sister 1 No Known Problems Sister 2 No Known Problems Uncle Blindness Neg Hx cataract, glauc dimitri, macular degeneration, strabismus Breast cancer Neg Hx Thyroid disease Neg Hx Relation Name Status Comments Aunt Brother Alive Father AIDS Maternal Grandfather Maternal Grandmother Mother brain aneurysm Nephew Anu Mclaughlin Other Paternal Grandfather Paternal Grandmother Sister 1 Alive Sister 2 Alive Uncle Social History Tobacco Use Types Packs/Day Years [...] care for your loved ones. For example, maternal child nurse or elderly care for an older adult? [...] on file Sexual Orientation Not on file Obstetrics History Para Term AB IAB SAB Ectopic Multiple Livin g Live Births 2 Last Filed Vital Signs Vital Sign Reading Time Taken Comments Blood Pressure 116/72 04/01/2025 4:07 PM EST Pulse 83 04/01/2025 4:07 PM EST Temperature 36.5 C (97.7 F) 04/01/2025 4:07 PM EST Respiratory Rate 16 04/08/2025 3:09 PM EST Oxygen Saturation 98% 04/01/2025 4:07 PM EST Inhaled Oxygen Concentration - - Weight 115 kg (253 lb) 04/08/2025 3:09 PM EST Height 149.9 cm (4' 11 ) 04/08/2025 3:09 PM EST Body Mass Index 51.1 04/08/2025 3:09 PM EST Plan of Treatment Upcoming Encounters Date Type Department Care Team (Late st Contact Info) Description 04/15/2025 12:30 PM EST Ancillary Procedure [facility] - [facility] [address] [place] [address] 04/29/2025 11:30 AM EST Office Visit [facility] Hematology Oncology [address] [place] [phone] Elizabeth Chan, DO [address] [place] [address] 05/10/2025 9:00 AM EST Appointment [facility] Endoscopy [address] [place] [phone] Obi Angelo MD [address] [facility] [address] [place] [address] 05/12/2025 8:30 AM EST Office Visit Endocrinology - [place] [address] [place] [address] Paulina Jones PA [address] [place] [address] 05/13/2025 4:00 PM EST Office Visit Orthopedics - [place] [address] [place] [address] Alok Mccauley PA [address] [place] [phone] 06/09/2025 9:00 AM EST [facility] [address] [place] [phone] Angie Donahue, FRED [address] [place] [address] 07/08/2025 3:00 PM EDT Ancillary Procedure Pulmonology - [place] [facility] [address] [place] [address] 07/08/2025 3:45 PM EDT [facility] [address] [place] [address] Renu Barclay MD [facility] [place] [phone] Health Maintenance Due Date Last Done Comments Colorectal Cancer Screening: Colonoscopy 1971 Drug Screen 1971 Non-Opioid Controlled Substance Agreement 1971 Diabetes: Annual Foot Exam 1981 Cervical Cancer Screening: Pap Smear 02/23/1992 Hepatitis B Vaccines (3 of 3 - 19+ 3-dose series) 04/07/2012 11/06/2011, 10/07/2011 RSV Immunization Adult Patients (1 - Risk 50-74 years 1-dose series) 2021 Zoster Vaccines (1 of 2) 2021 10/01/2011 HIV Screening 03/31/2022 COVID-19 Vaccine ( season) 2024 07/31/2021, 09/06/2020, 08/09/2020 Diabetes: Blood Sugar Control Test (HGBA1C) 06/25/2025 12/24/2024, 02/20/2023 Diabetes: Annual Urine Albumin-Creatinine Ratio (uACR) 12/24/2025 12/24/2024 Diabetes: Annual GFR (Glomerular Filtration Rate) 12/24/2025 12/24/2024, 12/13/2024 Hypertension/CHF/CAD Annual BMP Blood Test 12/24/2025 12/24/2024, 12/13/2024 Social Influencers of Health Screening 01/07/2026 01/07/2025 Diabetes: Annual Retina Eye Exam 03/22/2026 03/22/2025 Breast Cancer Screening 01/28/2027 01/28/2025, 01/06 DTaP,Tdap,and Td Vaccines (3 - Td or Tdap) 05/07/2028 05/07/2018, 01/15/2008 Cholesterol Screening (Lipid Panel) 12/24/2029 12/24/2024, 02/20/2023 Varicella Vaccines Aged Out 10/01/2011 No longer eligible based on patient's age to complete this topic Hepatitis C Screening Completed 02/20/2023 Pneumococcal Vaccine: 50+ Years Completed 02/20/2023 Influenza Vaccine Completed 02/04/2025, , 04/18/2016, Additional history exists Depression Screening Completed 03/03/2025 HIB Vaccines Aged Out No longer eligi ble based on patient's age to complete this topic HPV Vaccines Aged Out No longer eligi ble based on patient's age to complete this topic Hepatitis A Vaccines Aged Out No long er eligible based on patient's age to complete this topic IPV Vaccines Aged Out No longer eligi ble based on patient's age to complete this topic MMR Vaccines Aged Out No longer eligi ble based on patient's age to complete this topic Meningococcal ACWY Vaccine Aged Out N o longer eligible based on patient's age to complete this topic Meningococcal B Vaccine Aged Out No l onger eligible based on patient's age to complete this topic RSV Immunization Patients Under 20 months Aged Out No longer eligible based on patient's age to complete this topic Procedures Procedure Name Priority Date/Time Associated Diagnosis Comments XR KNEE 4+ VIEWS RIGHT Routine 2:59 PM EST Right knee pain, unspecified chronicity CT ANGIO CHEST WO AND/OR W CONTRAST Routine 04/05/2025 8:56 AM EST CBC WITH AUTO DIFFERENTIAL Routine 04/01/2025 1:35 PM EST Bilateral pulmonary embolism (CMS/HCC V24, CMS/HCC V28) PROTEIN S ACTIVITY Routine 04/01/2025 1: 35 PM EST Bilateral pulmonary embolism (CMS/HCC V24, CMS/HCC V28) PROTEIN C ACTIVITY Routine 04/01/2025 1: 35 PM EST Bilateral pulmonary embolism (CMS/HCC V24, CMS/HCC V28) BETA 2 GLYCOPROTEIN 1 ANTIBODY, IGM Routine 04/01/2025 1:35 PM EST Bilateral pulmonary embolism (CMS/HCC V24, CMS/HCC V28) BETA 2 GLYCOPROTEIN 1 ANTIBODY, IGG Routine 04/01/2025 1:35 PM EST Bilateral pulmonary embolism (CMS/HCC V24, CMS/HCC V28) CARDIOLIPIN ANTIBODIES, IGG, IGM AND IGA Routine 04/01/2025 1:35 PM EST Bilateral pulmonary embolism (CMS/HCC V24, CMS/HCC V28) LUPUS ANTICOAGULANT WITH REFLEX TO MIXING STUDIES Routine 04/01/2025 1:35 PM EST Bilateral pulmonary embolism (CMS/HCC V24, CMS/HCC V28) CBC AND DIFFERENTIAL Routine 04/01/2025 1:35 PM EST Bilateral pulmonary embolism (CMS/HCC V24, CMS/HCC V28) FACTOR V LEIDEN Routine 04/01/2025 1:35 PM EST Bilateral pulmonary embolism (CMS/HCC V24, CMS/HCC V28) PROTHROMBIN [id number] MUTATION ANALYSIS Routine 04/01/2025 1:35 PM EST Bilateral pulmonary embolism (CMS/HCC V24, CMS/HCC V28) EXTERNAL DIABETIC RETINA EYE EXAM 03/22/2025 POC GLUCOSE Routine 03/10/2025 8:57 AM EST Type 2 diabetes mellitus with hyperglycemia, with long-term current use of insulin (CMS/HCC V24, CMS/HCC V28) US ABDOMEN LIMITED Routine 02/07/2025 9: 38 AM EDT Abdominal mass, right lower quadrant CBC WITH AUTO DIFFERENTIAL Routine 02/04/2025 11:55 AM EDT Iron deficiency anemia, unspecified iron deficiency anemia type IRON AND TIBC Routine 02/04/2025 11:55 AM EDT Iron deficiency anemia, unspecified iron deficiency anemia type FERRITIN Routine 02/04/2025 11:55 AM EDT Iron deficiency anemia, unspecified iron deficiency anemia type CBC AND DIFFERENTIAL Routine 02/04/2025 11:55 AM EDT Iron deficiency anemia, unspecified iron deficiency anemia type MG MAMMO DIGITAL SCREENING W CHAUNCEY BILAT Routine 01/28/2025 1:34 PM EDT Encounter for screening mammogram for malignant neoplasm of breast ECG 12-LEAD Routine 01/24/2025 9:42 AM EDT PFO (patent foramen ovale) CBC WITH AUTO DIFFERENTIAL Routine 01/11/2025 2:41 PM EDT Iron deficiency anemia, unspecified iron deficiency anemia type CBC AND DIFFERENTIAL Routine 01/11/2025 2:41 PM EDT Iron deficiency anemia, unspecified iron deficiency anemia type MICROALBUMIN CREATININE URINE RATIO Routine 12/24/2024 8:50 AM EDT Type 2 diabetes mellitus with hyperglycemia, without long-term current use of insulin (CMS/HCC V24, CMS/HCC V28) COMPREHENSIVE METABOLIC PANEL Routine 12/24/2024 8:50 AM EDT Type 2 diabetes mellitus with hyperglycemia, without long-term current use of insulin (CMS/HCC V24, CMS/HCC V28) HEMOGLOBIN A1C Routine 12/24/2024 8:50 AM EDT Type 2 diabetes mellitus with hyperglycemia, without long-term current use of insulin (CMS/HCC V24, CMS/HCC V28) LIPID PANEL WITH REFLEX TO DIRECT LDL Routine 12/24/2024 8:50 AM EDT Type 2 diabetes mellitus with hyperglycemia, without long-term current use of insulin (CMS/HCC V24, CMS/HCC V28) HEPATITIS C SCREENING Routine 02/20/2023 from Last 3 Months or Most Recently Relevant to Health Maintenance Results * XR Knee 4+ Views Right (04/08/2025 2:59 PM EST) Anatomical Region Laterality Modality Lower Extremities, Knee Right [facility] 04/10/2025 9:34 AM EST Impressions 04/10/2025 9:38 AM EST Progressive degenerative changes. -------- FINAL REPORT -------- Dictated By: Odilia Valentin Dictated Date: 04/10/2025 09:34 ET Assigned Physician: Odilia Valentin Reviewed and Electronically Signed By: Odilia Valentin Signed Date: 04/10/2025 09:38 ET Workstation ID: [id number] Transcribed By: Self Edit Transcribed Date: 04/10/2025 [...] Signed Date: 04/10/2025 09:38 ET Workstation ID: [id number] Transcribed By: Self Edit Transcribed Date: 04/10/2025 09:34 ET us Alok PERLA IMG XR PROCEDURES Final Result * CT Angio Chest wo and/or w Contrast (04/05/2025 8:56 AM EST) Anatomical Region Laterality Modality Body Computed Tomogra phy us Historical Provider MD [facility] CT PROCEDURES Final R esult * Prothrombin 53587Y mutation analysis (04/01/2025 1:35 PM EST) Pathologist [facility] Prothrombin 16946W Mutation Analysis Negative 04/04/2025 2:08 PM EST [facility] Comment: The pathogenic c.*97G>A variant ([id number]) was NOT DETECTED. 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 This test does not rule out other mutations that may contribute to venous thrombosis. This test was performed using the brent(R) Factor II Test (Jackson) - an in vitro diagnostic device that uses real-time quantitative Polymerase Chain Reaction (qPCR) for the detection and genotyping of the human Factor II (F2) gene. The test detects the presence of the wild type (WT) F2 gene and the pathogenic c.*97G>A variant (also known as [id number]) in genomic DNA isolated from whole blood specimens as an aid in diagnosing patients with suspected thrombophilia. The brent(R) Factor II Test and the brent z 480 analyzer are used together for automated amplification and detection. The limit of detection for this test is 0.1 ng/uL of genomic DNA (2.5 ng/PCR reaction). Test performed at [facility], [address] [place] [address] Nuzhat Faria MD, PhD - Otr Flatbed Driver Blood Venous blood specimen / Unknown Venipuncture / Unknown 04/01/2025 1:35 PM EST 04/01/2025 4:39 PM EST us Elizabeth Chan DO LAB MOLECULAR DIAGNOS TICS ORDERABLES Final Result [facility] [address] [place] [address] * Beta 2 glycoprotein 1 antibody, IGM (04/01/2025 1:35 PM EST) [facility] Beta 2 Glycoprotein I IgM Antibody <2.4 <7.0 U/mL 04/05/2025 6:47 AM EST [facility] Comment: INTERPRETATION: Negative Test performed at [facility], [address] [place] [address] Nuzhat Faria MD, PhD - Otr Flatbed Driver Blood Venous blood specimen / Unknown Venipuncture / Unknown 04/01/2025 1:35 PM EST 04/01/2025 4:39 PM EST us Elizabeth Diggs Dustin DO LAB BLOOD ORDERABLES Final Result [facility] [address] [place] [address] * Beta 2 glycoprotein 1 antibody, IGG (04/01/2025 1:35 PM EST) [facility] Beta 2 Glycoprotein I IgG Antibody 0.9 <7.0 U/mL 04/05/2025 6:47 AM EST [facility] Comment: INTERPRETATION: Negative Test performed at [facility], [address] [place] [address] Nuzhat Faria MD, PhD - Otr Flatbed Driver Blood Venous blood specimen / Unknown Venipuncture / Unknown 04/01/2025 1:35 PM EST 04/01/2025 4:39 PM EST us Elizabeth Chan DO LAB BLOOD ORDERABLES Final Result [facility] [address] [place] [address] * (ABNORMAL) CBC auto differential (04/01/2025 1:35 PM EST) Only the most recent of3 resultswithin the time period is included. Pathologist [facility] WBC 4.6(L) 4.8 - 10.8 K/[facility] LAB HEMETOLOGY METHOD 04/01/2025 4:56 PM EST [facility] RBC 4.60 3.80 - 4.80 /[facility] LAB HEMETOLOGY METHOD 04/01/2025 4:56 PM [facility] Hemoglobin 11.8 11.5 - 16.0 g/dL LAB HEMETOLOGY METHOD 04/01/2025 4:56 PM [facility] Hematocrit 37.9 35.0 - 47.0 % LAB HEMETOLOGY METHOD 04/01/2025 4:56 PM [facility] MCV 83.1 79.0 - 98.0 FL LAB HEMETOLOGY METHOD 04/01/2025 4:56 PM [facility] MCH 25.9(L) 27.0 - 32.0 pcg LAB HEMETOLOGY METHOD 04/01/2025 4:56 PM [facility] MCHC 31.1(L) 32.0 - 37.0 g/dL LAB HEMETOLOGY METHOD 04/01/2025 4:56 PM [facility] RDW 16.9(H) 11.0 - 15.0 % LAB HEMETOLOGY METHOD 04/01/2025 4:56 PM [facility] Platelets 248 130 - 400 K/mcL LAB HEMETOLOGY METHOD 04/01/2025 4:56 PM [facility] MPV LAB HEMETOLOGY METHOD 04/01/2025 4:56 PM [facility] Comment:Not Measured NRBC 0.0 <1.0 % LAB HEMETOLOGY METHOD 04/01/2025 4:56 PM [facility] NRBC Absolute 0.00 <0.10 K/mcL LAB HEMETOLOGY METHOD 04/01/2025 4:56 PM [facility] Neutrophils Relative 56.9 % LAB HEMETOLOGY METHOD 04/01/2025 4:56 PM [facility] Lymphocytes Relative 32.8 % LAB HEMETOLOGY METHOD 04/01/2025 4:56 PM [facility] Monocytes Relative 6.7 % LAB HEMETOLOGY METHOD 04/01/2025 4:56 PM EST [facility] Eosinophils Relative 2.8 % LAB HEMETOLOGY METHOD 04/01/2025 4:56 PM [facility] Basophils Relative 0.6 % LAB HEMETOLOGY METHOD 04/01/2025 4:56 PM [facility] Immature Granulocytes Relative 0.2 % LAB HEMETOLOGY METHOD 04/01/2025 4:56 PM [facility] Neutrophils Absolute 2.63 1.50 - 7.00 K/mcL LAB HEMETOLOGY METHOD 04/01/2025 4:56 PM [facility] Lymphocytes Absolute 1.52 1.00 - 5.00 K/mcL LAB HEMETOLOGY METHOD 04/01/2025 4:56 PM [facility] Monocytes Absolute 0.31 0.20 - 1.00 K/mcL LAB HEMETOLOGY METHOD 04/01/2025 4:56 PM EST [facility] Eosinophils Absolute 0.13 0.00 - 0.50 K/mcL LAB HEMETOLOGY METHOD 04/01/2025 4:56 PM [facility] Basophils Absolute 0.03 0.00 - 0.20 K/mcL LAB HEMETOLOGY METHOD 04/01/2025 4:56 PM [facility] Immature Granulocytes Absolute 0.01 0.00 - 0.03 K/mcL LAB HEMETOLOGY METHOD 04/01/2025 4:56 PM [facility] Blood Venous blood specimen / Unknown Venipuncture / Unknown 04/01/2025 1:35 PM EST 04/01/2025 4:40 PM EST us Elizabeth Chan DO LAB BLOOD ORDERABLES Final Result [facility] [address] [place], [place] [address] [phone] * Protein S activity (04/01/2025 1:35 PM EST) Protein S Activity 80 65 - 140 % 2024 12:24 PM EST [facility] Comment: Heparin levels up to 1 IU/mL do not affect test results; higher levels may cause false elevation. Thrombin inhibitors and direct oral anticoagulants may lead to over-estimation of proein S level by this assay. Note that measurement of protein S or free protein S antigen levels would be less affected by medication. Test performed at [facility], [address] [place] [address] Nuzhat Faria MD, PhD - Otr Flatbed Driver Blood Venous blood specimen / Unknown Venipuncture / Unknown 04/01/2025 1:35 PM EST 04/01/2025 4:39 PM EST Elizabeth Chan LAB BLOOD ORDERABLES Final Result Performing Organization Address City/[facility]/ZIP Co de Phone Number [facility] [address] [place] [address] * Protein C activity (04/01/2025 1:35 PM EST) Protein C Activity 107 70 - 130 % 04/04/2025 12:24 PM EST [facility] Comment: Heparin levels up to 1 IU/mL do not affect test results. Higher levels may cause elevated levels. Test performed at [facility], [address] [place] [address] Nuzhat Faria MD, PhD - Otr Flatbed Driver Blood Venous blood specimen / Unknown Venipuncture / Unknown 04/01/2025 1:35 PM EST 04/01/2025 4:39 PM EST Elizabeth Chan DO LAB BLOOD ORDERABLES Final Result Performing Organization Address City/[facility]/ZIP Co de Phone Number [facility] [address] [place] [address] * (ABNORMAL) Lupus anticoagulant with reflex to mixing studies (04/01/2025 1:35 PM EST) APTT 45(H) <43 Sec(s) 04/04/2025 2:47 PM EST [facility] aPTT Mix 1:1 39 <43 Sec(s) 04/04/2025 2:47 PM EST [facility] Hexagonal Phase Neutralization NA 04/04/2025 2:47 PM EST [facility] Dilute Lonnie Viper Venom 54(H) <44 Sec(s) 04/04/2025 2:47 PM EST [facility] DRVVT 1:1 Mix 44 <44 Sec(s) 04/04/2025 2:47 PM EST [facility] DRVVT Confirmation NA 2024 2:47 PM EST [facility] Interpretation SEE BELOW 04/04/2025 2:47 PM EST [facility] Comment: Lupus anticoagulant not detected. Test performed at [facility], [address] , [place] [address] Nuzhat Faria MD, PhD - Otr Flatbed Driver Blood Venous blood specimen / Unknown Venipuncture / Unknown 04/01/2025 1:35 PM EST 04/01/2025 4:39 PM EST Elizabeth Chan LAB BLOOD ORDERABLES Final Result [facility] [address] [place] [address] * Cardiolipin antibodies, IgG, IgM and IgA (04/01/2025 1:35 PM EST) Cardiolipin Antibody Screen Negative Negative LAB CHEMISTRY METHOD 04/05/2025 11:05 AM EST [facility] Blood Venous blood specimen / Unknown Venipuncture / Unknown 04/01/2025 1:35 PM EST 04/01/2025 4:39 PM EST us Elizabeth Chan DO LAB BLOOD ORDERABLES Final Result [facility] [address] [place] [address], * Factor V leiden (04/01/2025 1:35 PM EST) [facility] Signature Factor V Leiden Mutation Negative 04/04/2025 2:08 PM EST [facility] Comment: The pathogenic F5 Leiden variant (c.1691G>A) was NOT DETECTED. 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 This test does not rule out other mutations that may contribute to venous thrombosis. This test was performed using the brent(R) Factor V Test (Jackson) - an in vitro diagnostic device that uses real-time quantitative Polymerase Chain Reaction (qPCR) for the detection and genotyping of the human factor V (F5) gene. The test detects the presence of the wild type (WT) F5 gene and the pathogenic c.1691G>A variant (also known as the F5 Leiden variant) in genomic DNA isolated from whole blood specimens as an aid in diagnosing patients with suspected thrombophilia. The brent(R) Factor V Test and the brent z 480 analyzer are used together for automated amplification and detection. The limit of detection for this test is 0.1 ng/uL of genomic DNA (2.5 ng/PCR reaction). Test performed at [facility], [facility] [address] , [place] [address] Nuzhat Faria MD, PhD - Otr Flatbed Driver Blood Venous blood specimen / Unknown Venipuncture / Unknown 04/01/2025 1:35 PM EST 04/01/2025 4:39 PM EST us Elizabeth Chan DO LAB MOLECULAR DIAGNOS TICS ORDERABLES Final Result [facility] [address] [place] [address] * External Diabetic Retina Eye Exam Report (03/22/2025) Anatomical Region Laterality Modality Ultrasound us Provider [facility] IMG US PROCEDURES Final Result * POC glucose manually resulted (03/10/2025 8:57 AM EST) Glucose POC 183 mg/dL Blood Capillary blood specimen / Unknown 03/10/2025 8:57 AM EST us Paulina PERLA POINT OF CARE TEST ENTER/EDIT OR DERABLES Final Result * US Abdomen Limited (02/07/2025 9:38 AM EDT) Anatomical Region Laterality Modality Body Ultrasound 02/07/2025 10:0 6 AM EDT Impressions 02/07/2025 10:39 AM EDT Area of clinical concern may represent a small hematoma or superinfected hematoma. Follow-up ultrasound in 6-8 weeks to ensure resolution -------- FINAL REPORT -------- Dictated By: Hilary Gamboa Dictated Date: 02/07/2025 10:06 ET Assigned Physician: Hilary Gamboa Reviewed and Electronically Signed By: Hilary Gamboa Signed Date: 02/07/2025 10:39 ET Workstation ID: [id number] Transcribed By: Self Edit Transcribed Date: 02/07/2025 10:10 ET Narrative 02/07/2025 10:39 AM EDT EXAMINATION: US ABDOMEN LIMITED 02/07/2025 9:30 AM Patient : 1970 CLINICAL DATA/INDICATIONS: RLQ nodule on palpation COMPARISON: None TECHNIQUE: Multiple grayscale images of the subcutaneous soft tissues of the right lower quadrant were obtained in area of palpable concern with limited color Doppler flow FINDINGS: Within the right lower quadrant abdominal wall, there is an echogenic lesion with a central irregular anechoic area with mild skin thickening. This measures 1.7 x 1.2 x 2.2 cm. Mild peripheral vascularity. Procedure Note Hilary Gamboa MD - 02/07/2025 EXAMINATION: US ABDOMEN LIMITED 02/07/2025 9:30 AM Patient :1970 CLINICAL DATA/INDICATIONS: RLQ nodule on palpation COMPARISON: None TECHNIQUE: Multiple grayscale images of the subcutaneous soft tissues ofthe right lower quadrant were obtained in area of palpable concern withlimited color Doppler flow FINDINGS: Within the right lower quadrant abdominal wall, there is an echogeniclesion with a central irregular anechoic area with mild skin thickening.This measures 1.7 x 1.2 x 2.2 cm. Mild peripheral vascularity. IMPRESSION: Area of clinical concern may represent a small hematoma or superinfectedhematoma. Follow-up ultrasound in 6-8 weeks to ensure resolution -------- FINAL REPORT -------- Dictated By: Hilary Gamboa Dictated Date: 02/07/2025 10:06 ET Assigned Physician: Hilary Gamboa Reviewed and Electronically Signed By: Hilary Gamboa Signed Date: 02/07/2025 10:39 ET Workstation ID: [id number] Transcribed By: Self Edit Transcribed Date: 02/07/2025 10:10 ET us Ricardo Howell NP IMG US PROCEDURES Final Resul t * (ABNORMAL) Iron and TIBC (02/04/2025 11:55 AM EDT) Iron 31(L) 40 - 150 mcg/dL LAB CHEMISTRY METHOD 02/04/2025 3:49 PM EDT [facility] TIBC 426 250 - 450 mcg/dL LAB CHEMISTRY METHOD 02/04/2025 3:49 PM EDT [facility] Iron Saturation 7(L) 15 - 50 % LAB CHEMISTRY METHOD 02/04/2025 3:49 PM EDT [facility] Blood Venous blood specimen / Unknown Venipuncture / Unknown 02/04/2025 11:55 AM EDT 02/04/2025 11:55 AM EDT us Matthew Hughes MD LAB BLOOD ORDERABLES [place] l Result [facility] [address] [place] [address], [place] [phone] * Ferritin (02/04/2025 11:55 AM EDT) Ferritin 18 8 - 252 ng/mL LAB CHEMISTRY METHOD 02/04/2025 3:49 PM EDT [facility] Blood Venous blood specimen / Unknown Venipuncture / Unknown 02/04/2025 11:55 AM EDT 02/04/2025 11:55 AM EDT us Matthew Hughes MD LAB BLOOD ORDERABLES [place]el l Result [facility]) [facility] [address] [place] [address], [place] [phone] * MG Mammo Digital Screening w Chauncey bilat (01/28/2025 1:34 PM EDT) Anatomical Region Laterality Modality Breast Bilateral Mammography 01/31/2025 11:5 1 AM EDT Impressions 01/31/2025 11:54 AM EDT No mammographic evidence of malignancy. A negative mammogram in the presence of a clinically suspicious palpable abnormality does not preclude the possibility of malignancy or alter the indications for biopsy. PQRI CPT II 3341F Code 92423, 90821 PQRI 225 CPT II 7025F TISSUE DENSITY: There are scattered areas of fibroglandular density. (BI-RADS category B) IMPRESSION: Benign. BI-RADS CATEGORY: 1 - NEGATIVE RECOMMENDATION: Screening bilateral mammogram is recommended in 1 year. Mammo Location: [facility], [address] [place] [id number] -------- FINAL REPORT -------- Dictated By: Sergio Bravo Dictated Date: 01/31/2025 11:51 ET Assigned Physician: Sergio Bravo Reviewed and Electronically Signed By: Sergio Bravo Signed Date: 01/31/2025 11:54 ET Workstation ID: [id number] Transcribed By: Self Edit Transcribed Date: 01/31/2025 11:51 ET Narrative 01/31/2025 11:54 AM EDT CLINICAL: The patient is a 54 years Female presenting for routine screening mammography. COMPARISON: Outside studies most recently 01/06/2021 and most remotely 06/02/2015. TECHNIQUE: Full-field digital mammography of the breasts bilaterally consisting of tomosynthesis in MLO and CC projection is performed in the BitGoographe 2000-D unit. Computer aided detection utilizing the iCAD system was utilized. FINDINGS: The breasts are again seen to be composed of a combination of fatty and fibroglandular elements. There is no cluster of microcalcifications, mass, or area of architectural distortion. There is no skin thickening or nipple retraction. Procedure Note Sergio Bravo MD - 01/31/2025 CLINICAL: The patient is a 54 years Female presenting for routinescreening mammography. COMPARISON: Outside studies most recently 01/06/2021 and most remotely06/02/2015. TECHNIQUE: Full-field digital mammography of the breasts bilaterallyconsisting of tomosynthesis in MLO and CC projection is performed in theSpareTime Senographe 2000-D unit. Computer aided detection utilizing the iCADsystem was utilized. FINDINGS: The breasts are again seen to be composed of a combination offatty and fibroglandular elements. There is no cluster ofmicrocalcifications, mass, or area of architectural distortion. There isno skin thickening or nipple retraction. IMPRESSION: No mammographic evidence of malignancy. A negative mammogram in the presence of a clinically suspicious palpableabnormality does not preclude the possibility of malignancy or alter theindications for biopsy. PQRI CPT II 3341F Code 99533, 71490 PQRI 225 CPT II 7025F TISSUE DENSITY: There are scattered areas of fibroglandular density.(BI-RADS category B) IMPRESSION: Benign. BI-RADS CATEGORY: 1 - NEGATIVE RECOMMENDATION: Screening bilateral mammogram is recommended in 1 year. Mammo Location: [facility], [facility], [address] [place] [id number] -------- FINAL REPORT -------- Dictated By: Sergio Bravo Dictated Date: 01/31/2025 11:51 ET Assigned Physician: Sergio Bravo Reviewed and Electronically Signed By: Sergio Bravo Signed Date: 01/31/2025 11:54 ET Workstation ID: [id number] Transcribed By: Self Edit Transcribed Date: 01/31/2025 11:51 ET us Matthew Hughes MD IMG BI PROCEDURES Final R esult * ECG 12 lead (01/24/2025 9:42 AM EDT) Ventricular Rate ECG 72 BPM GEMUSE Atrial Rate 72 BPM GEMUSE P-R Interval 146 ms GEMUSE QRS Duration 74 ms GEMUSE Q-T Interval 386 ms GEMUSE QTc 422 ms GEMUSE P Wave Bladen 62 degrees GEMUSE R Bladen -7 degrees GEMUSE T Bladen 19 degrees GEMUSE ECG Interpretation Normal sinus rhythm Nonspecific T wave abnormality When compared with ECG of 13-DEC-2024 18:22, Vent. rate has decreased BY 57 BPM Confirmed by PADMINI BOSS ([id number]) on 01/24/2025 1:07:31 PM GEMUSE 01/24/2025 9:42 AM EDT 01/24/2025 1:07 PM EDT us Padmini Boss MD ECG ORDERABLES Final Result [facility] * (ABNORMAL) Lipid panel with reflex to direct LDL (12/24/2024 8:50 AM EDT) Cholesterol 181 0 - 200 mg/dL LAB CHEMISTRY METHOD 12/24/2024 12:43 PM EDT [facility] Triglycerides 128 0 - 150 mg/dL LAB CHEMISTRY METHOD 12/24/2024 12:43 PM EDT [facility] HDL 35(L) >=40 mg/dL LAB CHEMISTRY METHOD 12/24/2024 12:43 PM EDT [facility] LDL Calculated 120(H) 0 - 100 mg/dL LAB CHEMISTRY METHOD 12/24/2024 12:43 PM EDT [facility] Comment:Estimated LDL Calcul ated using equation: Total cholesterol - HDL cholesterol - (Triglycerides/5) VLDL Cholesterol Kelechi 25.6 mg/dL LAB CHEMISTRY METHOD 12/24/2024 12:43 PM EDT [facility] Non HDL Chol. (LDL+VLDL) 146(H) <145 mg/dL LAB CHEMISTRY METHOD 12/24/2024 12:43 PM EDT [facility] Chol/HDL Ratio 5.2(H) 0.0 - 4.4 LAB CHEMISTRY METHOD 12/24/2024 12:43 PM EDT [facility] Blood Venous blood specimen / Unknown Venipuncture / Unknown 12/24/2024 8:50 AM EDT 12/24/2024 8:50 AM EDT Matthew Hughes MD LAB BLOOD ORDERABLES Carmel l Result Performing Organization Address [facility]/ZIP Co de Phone Number [facility] [address] [place] [address], [place] [phone] * (ABNORMAL) Microalbumin creatinine urine ratio (12/24/2024 8:50 AM EDT) Creatinine, Urine 271.0 mg/dL LAB CHEMISTRY METHOD 12/24/2024 2:54 PM EDT [facility] Microalb, Ur 2,580.0(H ) 0.0 - 29.0 mg/L LAB CHEMISTRY METHOD 12/24/2024 2:54 PM EDT [facility] Microalb/Crea t Ratio 952(H) <30 mg/g creat LAB CHEMISTRY METHOD 12/24/2024 2:54 PM EDT [facility] Urine Urine specimen obtained by clean catch procedure / Unknown Non-blood Collection / Unknown 12/24/2024 8:50 AM EDT 12/24/2024 8:50 AM EDT Matthew Hughes MD LAB URINE ORDERABLES Carmel l Result Performing Organization Address [facility]/ZIP Co de Phone Number [facility] [address] [place] [address], [place] [phone] * (ABNORMAL) Hemoglobin A1c (12/24/2024 8:50 AM EDT) Hemoglobin A1C 11.5(H) <6.5 % LAB CHEMISTRY METHOD 12/24/2024 1:43 PM EDT [facility] Mean Bld Glu Estim. 283 mg/dL LAB CHEMISTRY METHOD 12/24/2024 1:43 PM T [facility] Blood Venous blood specimen / Unknown Venipuncture / Unknown 12/24/2024 8:50 AM EDT 12/24/2024 8:50 AM EDT Matthew Hughes MD LAB BLOOD ORDERABLES [place] l Result [facility] [address] [place] [address], * (ABNORMAL) Comprehensive metabolic panel (12/24/2024 8:50 AM EDT) Pathologist [facility] Sodium 135 133 - 145 mmol/L LAB CHEMISTRY METHOD 12/24/2024 12:43 PM [facility] Potassium 3.6 3.5 - 5.5 mmol/L LAB CHEMISTRY METHOD 12/24/2024 12:43 PM [facility] Chloride 98 96 - 110 mmol/L LAB CHEMISTRY METHOD 12/24/2024 12:43 PM [facility] CO2 23 21 - 32 mmol/L LAB CHEMISTRY METHOD 12/24/2024 12:43 PM [facility] Anion Gap 14(H) 3 - 11 LAB CHEMISTRY METHOD 12/24/2024 12:43 PM [facility] Glucose 271(H) 70 - 100 mg/dL LAB CHEMISTRY METHOD 12/24/2024 12:43 PM [facility] BUN 6 5 - 25 mg/dL LAB CHEMISTRY METHOD 12/24/2024 12:43 PM [facility] Creatinine 0.68 0.50 - 1.10 mg/dL LAB CHEMISTRY METHOD 12/24/2024 12:43 PM [facility] eGFR 104 >=60 mL/min/1. 73m2 LAB CHEMISTRY METHOD 12/24/2024 12:43 PM [facility] Comment:Calculation based on the Chronic Kidney Disease Epidemiology Collaboration (CKD-EPI) equation refit without adjustment for race. BUN/Creatinine Ratio 8.8 LAB CHEMISTRY METHOD 12/24/2024 12:43 PM [facility] Calcium 9.7 8.5 - 10.5 mg/dL LAB CHEMISTRY METHOD 12/24/2024 12:43 PM [facility] AST (SGOT) 10 10 - 42 unit/L LAB CHEMISTRY METHOD 12/24/2024 12:43 PM [facility] ALT (SGPT) 12 10 - 60 unit/L LAB CHEMISTRY METHOD 12/24/2024 12:43 PM [facility] Alkaline Phosphatase 99 42 - 121 unit/L LAB CHEMISTRY METHOD 12/24/2024 12:43 PM [facility] Total Protein 7.1 6.0 - 8.0 g/dL LAB CHEMISTRY METHOD 12/24/2024 12:43 PM [facility] LAB Albumin 3.3 3.2 - 5.0 g/dL LAB CHEMISTRY METHOD 12/24/2024 12:43 PM [facility] Total Bilirubin 0.5 0.0 - 1.4 mg/dL LAB CHEMISTRY METHOD 12/24/2024 12:43 PM [facility] Blood Venous blood specimen / Unknown Venipuncture / Unknown 12/24/2024 8:50 AM EDT 12/24/2024 8:50 AM EDT us Matthew Hughes MD LAB BLOOD ORDERABLES Carmel alfaro Result JARETH MADRID [place] ([facility] [address] [place] [address], * Hepatitis C Screening (02/20/2023) Hepatitis C Screening negative us Historical Provider HEALTH MAINTENANCE Final Result from Last 3 Months or Most Recently Relevant to Health Maintenance Insurance [facility] [place] [address] Care Teams Parcel Post Order Clerk Relationship Specialty Start Date End Date Gemini Law MD [address] [facility] [place] PCP - General Internal Medicine 01/21/25
--- OUTSIDE RECORDS SUMMARY | 2025-04-12 16:39 | XMS_ITS | Encounter Summary ---
Author Organization [facility] Address [address] [place] [address] Care Team Providers Care Materials Technician Name Role Phone Gemini Law MD Primary Care Provider [phone] Reason for Visit * Reason Onset Date Comments Request For Order(s) 03/31/2025 Marcos [id number] Encounter Details Date Type Department Care Team (Late st Contact Info) Description 03/31/2025 Telephone Internal Medicine - [place] [address] [place], [place] [phone] Gemini Law MD [address] [place], [place] Social History Tobacco Use Types Packs/Day Years [...] care for your loved ones. For example, early childhood assistant or elderly care for an older adult? [...] as of this encounter Progress Notes * Van Haile - 03/31/2025 3:44 PM EST Faxed order received from Marcos. Orders placed in Gemini Law MD bin for signing, please fax [phone]. documented in this encounter Plan of Treatment Upcoming Encounters Date Type Department Care Team (Late st Contact Info) Description 04/15/2025 12:30 PM EST Ancillary Procedure [facility] - [facility] [address] [place] [phone] 04/29/2025 11:30 AM EST Office Visit [facility] Hematology Oncology [address] [place] [phone] Elizabeth Chan DO [address] [place] [address] 05/10/2025 9:00 AM EST Appointment [facility] Endoscopy [address] [place] [phone] Obi Angelo MD 299 [facility] [address] [place] [address] 05/12/2025 8:30 AM EST Office Visit Endocrinology - [address] [phone] Paulina Jones PA [address] [place] [address] 05/13/2025 4:00 PM EST Office Visit Orthopedics - [address] [phone] Alok Mccauley, PAN [address] [place] [phone] 06/09/2025 9:00 AM EST Office Visit Internal Medicine - [facility] [address] [place] [address] Angie Donahue NP [address] [place] [address] 07/08/2025 3:00 PM EDT Ancillary Procedure Pulmonology - [place] 175 [facility] [address] [place] [phone] 07/08/2025 3:45 PM EDT Office Visit Pulmonology - [place] [address] [facility] [address] [place] [address] Renu Barclay MD [address] [place] [phone] documented as of this encounter Visit Diagnoses Not on filedocumented in this encounter Additional Health Concerns Assessment Noted Time PHQ-9 Depression Total Score: 13 025 2:01 PM EST documented as of this encounter Care Teams Materials Technician Relationship Specialty Start Date End Date Gemini Law MD [address] [place] [phone] PCP - General Internal Medicine 01/21/25 documented as of this encounter
--- OUTSIDE RECORDS SUMMARY | 2025-04-12 16:39 | XMS_ITS | Encounter Summary ---
Author Organization [facility] Address [address] [place] [address] Care Team Providers Care Dope Maintenance Worker Name Role Phone Gemini Law MD Primary Care Provider [phone] Reason for Visit * Reason Onset Date Comments information needed/letter for work 03/09/2025 Encounter Details Date Type Department Care Team ([facility] Contact Info) Description 03/09/2025 Telephone Internal Medicine - [place] [address] [facility] [place] [phone] Gemini Law MD [address] [place], [place] Social History Tobacco Use Types Packs/Day [...] for your loved ones. For example, child advocate or elderly care for an older adult? [...] as of this encounter Progress Notes * Velvet Haro MA - 03/15/2025 2:51 PM EST Lvm for pt on mobile # to give the office a call back. Please transfer to ext. [phone] or B side. I have the letter for her on B side. * Jordyn Solorzano - 03/15/2025 12:46 PM EST Pt is calling to check if letter is ready to supervisor opening and picking and when she is returning to work. Informed letter is being reviewed by pcp, we will call when completed and ready for supervisor opening and picking. * Velvet Haro MA - 03/15/2025 11:30 AM EST Letter pended, please review/revise as needed. 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 Pt requesting a letter for work if she should go with restrictions or stay out of work toshe feels better. And follows up with PCP * Elva Garza MA - 03/10/2025 9:50 AM EST Lvm call to ext [phone] * Gemini Law MD - 03/09/2025 10:35 PM EST Please check with patient Nature of work and her current endurance and capacity . * Bhakti Rojas MA - 03/09/2025 11:45 AM EST Pt requesting letter from PCP for work regarding when to return and restrictions if any. ROBIN on 03/03/[address] Law. Letter pended. * Melanie Allen - 03/09/2025 11:40 AM EST Pt was seen by Dr. Law on 03/03/25 and forgot to ask her to write a letter to her employer stating weather or not she can return to work and also if she can are there any restrictions. The patient has Pulmonary issues and blood clots currently. Please call pt once the letter is completed and or if you have any questions. Please call her at [phone] thank you documented in this encounter Plan of Treatment Upcoming Encounters Date Type Department Care Team (Late st Contact Info) Description 04/15/2025 12:30 PM EST Ancillary Procedure [facility] - [facility] [address] [facility] [address] [place] [address] 04/29/2025 11:30 AM EST Office Visit [facility] Hematology Oncology [address] [place] [phone] Elizabeth Chan, DO [address] [place] [address] 05/10/2025 9:00 AM EST Appointment [facility] Endoscopy [address] [place] [phone] Obi Angelo MD 299 [facility] 419 [place] [address] 05/12/2025 8:30 AM EST Office Visit Endocrinology - [address] [phone] Paulina Jones PA [address] [place] [address] 05/13/2025 4:00 PM EST Office Visit Orthopedics - [address] [phone] Alok Mccauley PA [address] [place] [phone] 06/09/2025 9:00 AM EST Office Visit Internal Medicine - [address] [phone] Angie Donahue NP [address] [place] [address] 07/08/2025 3:00 PM EDT Ancillary Procedure Pulmonology - [address] [phone] 07/08/2025 3:45 PM EDT Office Visit Pulmonology [address] [phone] Renu Barclay MD [address] [place] [phone] documented as of this encounter Visit Diagnoses Not on filedocumented in this encounter Additional Health Concerns Assessment Noted Time PHQ-9 Depression Total Score: 13 025 2:01 PM EST documented as of this encounter Care Teams Dope Maintenance Worker Relationship Specialty Start Date End Date Gemini Law MD [address] [place] [address] PCP - General Internal Medicine 01/21/25 documented as of this encounter
--- OUTSIDE RECORDS SUMMARY | 2025-04-12 16:39 | XMS_ITS | Encounter Summary ---
Author Organization [facility] Address [address] [place] [address] Care Team Providers Care Vehicle Assembly Inspector Name Role Phone Gemini Law MD Primary Care Provider [phone] Reason for Visit * Reason Onset Date Comments Request For Order(s) 03/11/2025 Marcos grant [id number] Encounter Details Date Type Department Care Team ([facility] Contact Info) Description 03/11/2025 Telephone Internal Medicine - [place] [address] [place], [place] [phone] Gemini Law MD [address] [place] [address] Social History Tobacco Use Types Packs/Day Years [...] care for your loved ones. For example, rn child or elderly care for an older adult? [...] encounter Progress Notes * Keena Stewart - 03/11/2025 1:23 PM EST Placed order in Gemini Law MD Please sign and fax back to [phone] documented in this encounter Plan of Treatment Upcoming Encounters Date Type Department Care Team (Late st Contact Info) Description 04/15/2025 12:30 PM EST Ancillary Procedure [facility] - [address] [place] [phone] 04/29/2025 11:30 AM EST Office Visit [facility] Hematology Oncology [address] [place] [phone] Elizabeth Chan, DO [address] [place] [address] 05/10/2025 9:00 AM EST Appointment [facility] Endoscopy [address] [place] [phone] Obi Angelo MD 299 [facility] 419 [place] [address] 05/12/2025 8:30 AM EST Office Visit Endocrinology - [place] [address] [place] [address] Paulina Jones PA [address] [place] [address] 05/13/2025 4:00 PM EST Office Visit Orthopedics - [address] [phone] Alok Mccauley, PAN [address] [place] [phone] 06/09/2025 9:00 AM EST Office Visit Internal Medicine - [facility] 305 [place] [phone] Angie Donahue, FRED 305 [place] [address] 07/08/2025 3:00 PM EDT Ancillary Procedure Pulmonology - [place] [facility] 200 [place] [phone] 07/08/2025 3:45 PM EDT Office Visit Pulmonology - [place] 175 [facility] [address] [place] [phone] Renu Barclay MD [address] [place] [phone] documented as of this encounter Visit Diagnoses Not on filedocumented in this encounter Additional Health Concerns Assessment Noted Time PHQ-9 Depression Total Score: 13 025 2:01 PM EST documented as of this encounter Care Teams Vehicle Assembly Inspector Relationship Specialty Start Date End Date Gemini Law MD [address] [place] [phone] PCP - General Internal Medicine 01/21/25 documented as of this encounter
[2025-04-13 13:56] VITALS: BMI 50.7
--- OUTSIDE RECORDS SUMMARY | 2025-05-06 19:00 | XMS_ITS | Clinical Summary ---
Author Organization Unknown Care Team Providers Care Acid Bleacher Name Role Phone ODILIA HARDY, SANJUANA Unavailable Unavailable OLMAN VILLALTA, NIURKA Unavailable Unavailable Payers Payer Name Policy Type Policy Number Effective Date Expira tion Date [facility] MEDICA[facility] ([facility] [place] [id number] [place] [id number] Problems Condition Name Condition Details Condition Category Status Onset Date Resolution Date Last Treatment Date Treating Clinician Comments TYPE 2 DIABETES MELLITUS WITHOUT COMPLICATION S Active 12-29 00:00: 00 Allergies, Adverse Reactions, Alerts Allergy Name Allergy Type Status Severity Reaction(s) Onset Date Inactive Date Treating Clinician Comments NKA Propensity to adverse reactions Active 2024-12 10:22:2 2 Medications Ordered Medication Name Filled Medication Name Start Date Stop Date Current Medication? Ordering Clinician Indication Dosage Frequency Signature (SIG) Comments Components Admelog SoloStar U-100 Insulin lispro 100 unit/mL subcutaneou s pen 01-08 00:00: 00 Yes [id number] Per instruc tions 3 TIMES DAILY Per instructio ns 3 TIMES DAILY (route: subcutaneo us) Med Classific ation: Endocrine Ativan 0.5 mg tablet 01-08 00:00: 00 Yes [id number] ANXIETY 1 tablet 2 TIMES DAILY 1 tablet 2 TIMES DAILY (route: oral) Med Classific ation: Central Nervous System Agents Eliquis 5 mg tablet 01-08 00:00: 00 01-11 23:59 :00 No [id number] Per instruc tions 2 TIMES DAILY Per instructio ns 2 TIMES DAILY (route: oral) Med Classific ation: Hematolog ical Agents Eliquis 5 mg tablet 01-08 00:00: 00 01-12 23:59 :00 No [id number] 2 tablet 2 TIMES DAILY 2 tablet 2 TIMES DAILY (route: oral) Med Classific ation: Hematolog ical Agents ferrous sulfate 325 mg (65 mg iron) tablet 01-08 00:00: 00 Yes [id number] 1 tablet 3 TIMES DAILY 1 tablet 3 TIMES DAILY (route: oral) Med Classific ation: Electroly te Balance-N utritiona l Products gabapentin 300 mg capsule 01-08 00:00: 00 Yes [id number] 1 capsule 2 TIMES DAILY 1 capsule 2 TIMES DAILY (route: oral) Med Classific ation: Central Nervous System Agents Glucagon (HCl) Emergency Kit 1 mg solution for injection 01-08 00:00: 00 Yes [id number] Per instruc tions NEEDED Per instructio ns NEEDED (route: injection) Med Classific ation: Endocrine glucose 4 gram chewable tablet 01-08 00:00: 00 Yes [id number] 4 tablet DIRECTED 4 tablet DIRECTED (route: oral) Med Classific ation: Endocrine insulin glargine (U-100) 100 unit/mL (3 mL) subcutaneou s pen 01-08 00:00: 00 02-02 23:59 :00 No [id number] 30 unit EVERY AM 30 unit EVERY AM (route: subcutaneo us) Med Classific ation: Endocrine metformin 500 mg tablet 01-08 00:00: 00 Yes [id number] 1 tablet EVERY PM 1 tablet EVERY PM (route: oral) Med Classific ation: Endocrine metoprolol tartrate 25 mg tablet 01-08 00:00: 00 Yes [id number] 12.5 mg 2 TIMES DAILY 12.5 mg 2 TIMES DAILY (route: oral) Med Classific ation: Cardiovas cular Therapy Agents gabapentin 300 mg capsule 01-11 00:00: 00 Yes [id number] 2 capsule BEDTIME 2 capsule BEDTIME (route: oral) Med Classific ation: Central Nervous System Agents insulin glargine (U-100) 100 unit/mL (3 mL) subcutaneou s pen 2024-04 00:00: 00 Yes [id number] 30 unit EVERY AM 30 unit EVERY AM (route: subcutaneo us) Med Classific ation: Endocrine Vital Signs Vital Name Observation Time Observation Value Commen ts Temperature 2025-04-04 16:21:00.000 98 [degF] Temperature 2025-03-18 13:04:00.000 98 [degF] Temperature 2025-03-16 13:31:00.000 97.6 [degF] Temperature 2025-03-11 13:33:00.000 98 [degF] Pulse 2025-04-04 16:21:00.000 84 /min Pulse 2025-03-18 13:04:00.000 93 /min Pulse 2025-03-16 13:31:00.000 86 /min Pulse 2025-03-11 13:33:00.000 84 /min O2 Saturation (%) 2025-04-04 16:23:00.000 100 % O2 Saturation (%) 2025-03-18 13:04:00.000 98 % O2 Saturation (%) 2025-03-11 13:33:00.000 98 % Respirations 2025-04-04 16:21:00.000 16 /min Respirations 2025-03-18 13:04:00.000 16 /min Respirations 2025-03-16 13:31:00.000 18 /min Respirations 2025-03-11 13:33:00.000 16 /min Systolic Blood Pressure 2025-04-04 16:21:00.000 146 mm [Hg] Systolic Blood Pressure 2025-03-18 13:04:00.000 143 mm [Hg] Systolic Blood Pressure 2025-03-16 13:31:00.000 140 mm [Hg] Systolic Blood Pressure 2025-03-11 13:33:00.000 139 mm [Hg] Diastolic Blood Pressure 2025-04-04 16:21:00.000 65 mm [Hg] Diastolic Blood Pressure 2025-03-18 13:04:00.000 93 mm [Hg] Diastolic Blood Pressure 2025-03-16 13:31:00.000 86 mm [Hg] Diastolic Blood Pressure 2025-03-11 13:33:00.000 88 mm [Hg] Plan of Treatment Planned Activity Planned Date Details Comments Future Scheduled Test SKILLED NU RSE TO EVALUATE PATIENT, IDENTIFY PRIMARY AND CO-MORBID CONDITIONS CODED PER CODING GUIDELINES, AND DEVELOP PATIENT SPECIFIC PLAN OF CARE THAT INCLUDES PATIENT GOAL FOR HOME HEALTH. PLAN OF CARE TO INCLUDE 3 PRN VISIT(S) FOR OASIS DATA COLLECTION/COMPREHENSIVE ASSESSMENT AT TIMEPOINTS PER FEDERAL REGULATIONS. THIS INCLUDES VISITS FOR CASSI, RECERT, SCIC, AND/OR DC. [code = SKILLED NURSE TO EVALUATE PATIENT, IDENTIFY PRIMARY AND CO-MORBID CONDITIONS CODED PER CODING GUIDELINES, AND DEVELOP PATIENT SPECIFIC PLAN OF CARE THAT INCLUDES PATIENT GOAL FOR HOME HEALTH. PLAN OF CARE TO INCLUDE 3 PRN VISIT(S) FOR OASIS DATA COLLECTION/COMPREHENSIVE ASSESSMENT AT TIMEPOINTS PER FEDERAL REGULATIONS. THIS INCLUDES VISITS FOR CASSI, RECERT, SCIC, AND/OR DC.] Future Scheduled Test SKILLED NU RSE FOR OBSERVATION AND ASSESSMENT OF PATIENT S PAIN LEVEL AND EFFECTIVENESS OF PAIN MANAGEMENT REGIMEN. SKILLED NURSE TO INSTRUCT PATIENT/CAREGIVER REGARDING PHARMACOLOGIC AND NON-PHARMACOLOGIC PAIN CONTROL MEASURES. SKILLED NURSE TO REPORT TO PHYSICIAN IF PAIN IS UNCONTROLLED WITH CURRENT PAIN MANAGEMENT REGIMEN. [code = SKILLED NURSE FOR OBSERVATION AND ASSESSMENT OF PATIENT S PAIN LEVEL AND EFFECTIVENESS OF PAIN MANAGEMENT REGIMEN. SKILLED NURSE TO INSTRUCT PATIENT/CAREGIVER REGARDING PHARMACOLOGIC AND NON-PHARMACOLOGIC PAIN CONTROL MEASURES. SKILLED NURSE TO REPORT TO PHYSICIAN IF PAIN IS UNCONTROLLED WITH CURRENT PAIN MANAGEMENT REGIMEN.] Future Scheduled Test PATIENT CROWDER S A RISK OF HOSPITALIZATION AND ED USE. SKILLED NURSE TO ESTABLISH SUPPORT MEASURES TO MINIMIZE RISK OF HOSPITALIZATION AND ED USE, AND INSTRUCT PATIENT/CAREGIVER ON METHODS TO REDUCE AVOIDABLE HOSPITALIZATION AND ED USE. [code = PATIENT HAS A RISK OF HOSPITALIZATION AND ED USE. SKILLED NURSE TO ESTABLISH SUPPORT MEASURES TO MINIMIZE RISK OF HOSPITALIZATION AND ED USE, AND INSTRUCT PATIENT/CAREGIVER ON METHODS TO REDUCE AVOIDABLE HOSPITALIZATION AND ED USE.] Future Scheduled Test SKILLED NU RSE TO PROVIDE INSTRUCTION TO PATIENT/CAREGIVER RELATED TO DISCHARGE PLANNING. [code = SKILLED NURSE TO PROVIDE INSTRUCTION TO PATIENT/CAREGIVER RELATED TO DISCHARGE PLANNING.] Future Scheduled Test SKILLED NU RSE TO O/A OF PATIENTS MENTAL/BEHAVIORAL STATUS, ASSESS VITAL SIGNS WEEKLY , ALLOW 2 PRNS FOR MEDICATION MANAGEMENT. [code = SKILLED NURSE TO O/A OF PATIENTS MENTAL/BEHAVIORAL STATUS, ASSESS VITAL SIGNS WEEKLY , ALLOW 2 PRNS FOR MEDICATION MANAGEMENT.] Future Scheduled Test SKILLED NU RSE WILL MAINTAIN SITUATIONAL AWARENESS FOR SAFETY AND WILL NOTIFY CLINICAL GRID INSPECTOR AND PHYSICIAN/PROVIDER WITH ANY CHANGE IN CONDITION. [code = SKILLED NURSE WILL MAINTAIN SITUATIONAL AWARENESS FOR SAFETY AND WILL NOTIFY CLINICAL GRID INSPECTOR AND PHYSICIAN/PROVIDER WITH ANY CHANGE IN CONDITION.] Future Scheduled Test SKILLED NU RSE FOR O/A OF GENERAL HEALTH STATUS OF PAIN, CARDIAC, RESPIRATORY, GASTROINTESTINAL, GENITOURINARY, SKIN, NEUROLOGIC, ENDOCRINE SYSTEMS TO IDENTIFY CHANGES ASSOCIATED WITH EXACERBATION FOR EARLY INTERVENTION OF COMPLICATIONS WEEKLY [code = SKILLED NURSE FOR O/A OF GENERAL HEALTH STATUS OF PAIN, CARDIAC, RESPIRATORY, GASTROINTESTINAL, GENITOURINARY, SKIN, NEUROLOGIC, ENDOCRINE SYSTEMS TO IDENTIFY CHANGES ASSOCIATED WITH EXACERBATION FOR EARLY INTERVENTION OF COMPLICATIONS WEEKLY] Future Scheduled Test SKILLED NU RSE TO REVIEW PATIENT MEDICATIONS. INSTRUCT PATIENT/CAREGIVER ON MONITORING OF EFFECTIVENESS, ADVERSE DRUG REACTIONS, SIDE EFFECTS OF ALL MEDICATIONS (PRESCRIPTION/-OTC), AND HOW AND WHEN TO REPORT PROBLEMS. [code = SKILLED NURSE TO REVIEW PATIENT MEDICATIONS. INSTRUCT PATIENT/CAREGIVER ON MONITORING OF EFFECTIVENESS, ADVERSE DRUG REACTIONS, SIDE EFFECTS OF ALL MEDICATIONS (PRESCRIPTION/-OTC), AND HOW AND WHEN TO REPORT PROBLEMS.] Future Scheduled Test SKILLED NU RSE FOR O/A AND SKILLED TEACHING RELATED TO MANAGEMENT OF DEPRESSIVE SYMPTOMS AND/OR DEPRESSION. SN TO REPORT SIGNIFICANT CHANGE IN DEPRESSIVE SYMPTOMS TO CLINICAL PROVIDER FOR EARLY INTERVENTION. [code = SKILLED NURSE FOR O/A AND SKILLED TEACHING RELATED TO MANAGEMENT OF DEPRESSIVE SYMPTOMS AND/OR DEPRESSION. SN TO REPORT SIGNIFICANT CHANGE IN DEPRESSIVE SYMPTOMS TO CLINICAL PROVIDER FOR EARLY INTERVENTION.] Future Scheduled Test SKILLED NU RSE FOR O/A AND SKILLED TEACHING OF COPING SKILLS TO MANAGE ANXIETY AND MAINTAIN SAFETY. [code = SKILLED NURSE FOR O/A AND SKILLED TEACHING OF COPING SKILLS TO MANAGE ANXIETY AND MAINTAIN SAFETY.] Future Scheduled Test SKILLED NU RSE TO ASSESS PATIENT S PSYCHOSOCIAL STATUS TO IDENTIFY POTENTIAL ISSUES THAT MAY COMPLICATE THE PROVISION OF THE PLAN OF CARE INCLUDING THE PATIENT S ABILITY TO ACCESS COMMUNITY RESOURCES AND PSYCHOSOCIAL SUPPORT SERVICES. [code = SKILLED NURSE TO ASSESS PATIENT S PSYCHOSOCIAL STATUS TO IDENTIFY POTENTIAL ISSUES THAT MAY COMPLICATE THE PROVISION OF THE PLAN OF CARE INCLUDING THE PATIENT S ABILITY TO ACCESS COMMUNITY RESOURCES AND PSYCHOSOCIAL SUPPORT SERVICES.] Future Scheduled Test SKILLED NU RSE FOR O/A AND TEACHING OF DIABETIC MANAGEMENT INCLUDING BLOOD SUGAR MONITORING/USE OF GLUCOMETER, DIABETIC DIET, LOWER EXTREMITY SKIN INSPECTION, PROPER SKIN/FOOT CARE, AND SIGNS AND SYMPTOMS HYPO/HYPERGLYCEMIA TO REPORT. [code = SKILLED NURSE FOR O/A AND TEACHING OF DIABETIC MANAGEMENT INCLUDING BLOOD SUGAR MONITORING/USE OF GLUCOMETER, DIABETIC DIET, LOWER EXTREMITY SKIN INSPECTION, PROPER SKIN/FOOT CARE, AND SIGNS AND SYMPTOMS HYPO/HYPERGLYCEMIA TO REPORT.] Goal 2025-03-04 Patient Goal - P ATIENT VERBALIZED GOAL OF LOOSING WEIGHT AND GETTING RID OF DIABETES Goal Patient Goal - P ATIENT VERBALIZED GOAL OF LOOSING WEIGHT AND GETTING RID OF DIABETES Goal Provider Goal - A PLAN OF CARE WILL BE ESTABLISHED THAT MEETS PATIENT'S SENIOR LIVING NEEDS AND INCLUDES PATIENT GOAL FOR HOME HEALTH. Goal Provider Goal - PATIENT/CAREGIVER WILL DEMONSTRATE UNDERSTANDING OF PHARMACOLOGIC AND NONPHARMACOLOGIC PAIN CONTROL MEASURES AND PATIENT WILL HAVE IMPROVEMENT IN PAIN INTERFERING WITH ACTIVITY EVIDENCED BY PAIN AT A LEVEL THAT IS ACCEPTABLE TO THE PATIENT AND PAIN LEVEL WITHIN ESTABLISHED PARAMETERS BY END OF CERTIFICATION PERIOD. Goal Provider Goal - PATIENT WILL HAVE SUPPORT MEASURES ESTABLISHED TO PREVENT HOSPITALIZATION AND ED USE AND PATIENT/CAREGIVER WILL VERBALIZE/DEMONSTRATE METHODS TO REDUCE AVOIDABLE HOSPITALIZATION AND ED USE BY END OF EPISODE. Goal Provider Goal - PATIENT/CAREGIVER WILL VERBALIZE UNDERSTANDING OF DISCHARGE PLANNING INSTRUCTIONS BY DATE OF DISCHARGE. Goal Provider Goal - ALTERED MENTAL/BEHAVIORAL STATUS WILL BE IDENTIFIED PROMPTLY AND INTERVENTION INITIATED QUICKLY TO MINIMIZE ASSOCIATED RISKS THROUGHOUT CERTIFICATION PERIOD. Goal Provider Goal - PATIENT WILL REMAIN SAFE IN THE COMMUNITY AND WILL BE FREE OF DANGER TO SELF AND OTHERS THROUGHOUT THE CERTIFICATION PERIOD. Goal Provider Goal - CHANGE IN GENERAL HEALTH STATUS WILL BE IDENTIFIED AND REPORTED TO PHYSICIAN FOR PROMPT INTERVENTION TO MINIMIZE ASSOCIATED RISKS THROUGHOUT CERTIFICATION PERIOD. Goal Provider Goal - PATIENT/CAREGIVER WILL VERBALIZE UNDERSTANDING OF EDUCATION PROVIDED ON MEDICATIONS BY THE END OF THE CERTIFICATION PERIOD. Goal Provider Goal - PATIENT WILL REMAIN SAFE WITHOUT DECOMPENSATION IN DEPRESSIVE CONDITION, WHILE MAINTAINING OPTIMAL LEVEL OF MENTAL HEALTH AND WELL BEING THROUGHOUT CERTIFICATION PERIOD. Goal Provider Goal - PATIENT WILL BE ABLE TO PERFORM DAILY FUNCTIONS AND HAVE OPTIMAL IMPROVEMENT IN LEVEL OF ANXIETY THROUGHOUT CERTIFICATION PERIOD. Goal Provider Goal - PSYCHOSOCIAL NEEDS WILL BE IDENTIFIED AND PLAN IMPLEMENTED TO MINIMIZE RISK THROUGHOUT CERTIFICATION PERIOD. Goal Provider Goal - PATIENT/CAREGIVER WILL VERBALIZE/DEMONSTRATE KNOWLEDGE OF DIABETIC MANAGEMENT. CHANGES IN DIABETIC STATUS WILL BE IDENTIFIED AND REPORTED TO PHYSICIAN FOR PROMPT INTERVENTION THROUGHOUT THE CERTIFICATION PERIOD. Encounters Start Date/Time End Date/Time Encounter Type Admission Type Attending [facility] Care Facility Care Department Encounter ID Discharge Date Discharge Status Discharge Condition Discharge Reason Percent Goals Met 2025-03-09 00:00:00 2025-05-07 00:00:00 Outpatient RECERTIFIC ATION NIURKA [facility] [id number] 27.27
== END 2025-04-12 13:57 | disposition home or self-care (01) ==
LOC: HO.ENCR 12:49
PROVIDERS: PCP Internal Medicine; Visit Provider Dietitian, Registered
DX: E11.9 Type 2 diabetes mellitus without complications (principal)

== ENCOUNTER → 2025-04-12 12:48 | Outpatient (BNVA) | payer OTHER, SELFPAY | PROVIDERS: PCP Internal Medicine; Visit Provider Dietitian, Registered | DX: E11.9 Type 2 diabetes mellitus without complications (principal); Z79.4 Long term (current) use of insulin; Z71.3 Dietary counseling and surveillance | CPT/HCPCS: 97803 ==